=== PATIENT | female | born 1970 | race Caucasian/White ===

== ENCOUNTER 2019-07-10 16:06 | Inpatient (IN) | payer BC, MEDICARE ==
--- NOTE | 2019-07-10 17:43 | ED ---
Abdominal Pain HPI - General Source: patient Mode of arrival: ambulatory Limitations: no limitations <Sanna Herbert - Last Filed: 07/11/19 00:05> <Noris Lai - Last Filed: 07/17/19 14:32> - General Chief Complaint: Abdominal Pain Stated Complaint: lt sided flank pain Time Seen by Provider: 07/10/19 17:17 - History of Present Illness Initial Comments: 48-year-old female presenting today for chief complaint of left flank pain radiating towards left groin x 3 hours. Patient states that within the last 2 months she has been having urological workup for initially what was thought to be recurrent urinary tract infections. She states that it initally began with left flank pain that resolved but she had a CT performed 3 weeks after symptom resolution and not stone was found she states her urologist then recommended cystoscopy, which she had performed during procedure patient had an area of the bladder due to inflammation, and a biopsy--patient then discharged on antibiotics which she cannot recall the name of. Procedure was performed 5 days ago. Patient is in town for the holidays visiting family and developed left flank pain that radiates towards her groin she states it fluctuates in intensity at maximum 8 out of 10 and a baseline of 5 out of 10 she states when the pain is at its worse she said describes as a stabbing pain. Patient states she also feels nauseated and has had an episode of dry heaving. Patient denies diarrhea dysuria urgency frequency or visible hematuria. Patient denies fever or flulike symptoms. Patient denies having any significant symptoms status post cystoscopy she states her symptoms actually have felt as though they resolved and she only had 1 day of gross hematuria. Patient denies any other complaints. Patient denies any recent shortness of breath, chest pain, back pain, abdominal pain, numbness or tingling, constipation or diarrhea, headaches or visual changes, or any other complaints. (Sanna Herbert) - Related Data Home Medications Medication Instructions Recorded Confirmed Cetirizine HCl [Zyrtec] 10 mg PO DAILY PRN 02/05/14 07/10/19 Metoclopramide HCl [Reglan] 5 mg PO BID PRN 02/05/14 07/10/19 buPROPion HCL [Wellbutrin XL] 300 mg PO HS 02/05/14 07/10/19 Dulaglutide [Trulicity] 0.75 mg SQ FR 07/10/19 07/10/19 Fenofibrate [Lofibra] 160 mg PO DAILY 07/10/19 07/10/19 Gabapentin [Neurontin] 600 mg PO HS 07/10/19 07/10/19 Galcanezumab-Gnlm [Emgality] 120 mg SQ Q28D 07/10/19 07/10/19 INSULIN ASPART (NovoLOG) [NovoLOG 5 - 15 unit SQ AC-TID PRN 07/10/19 07/10/19 (formulary)] Insulin Degludec [Tresiba] 30 units SQ DAILY 07/10/19 07/10/19 Levofloxacin 250 mg PO HS 07/10/19 07/10/19 Levothyroxine Sodium [Synthroid] 100 mcg PO DAILY 07/10/19 07/10/19 Lisinopril [Prinivil] 10 mg PO BID 07/10/19 07/10/19 Naproxen 500 mg PO BID PRN 07/10/19 07/10/19 Ondansetron HCl [Zofran] 8 mg PO Q8H PRN 07/10/19 07/10/19 Pantoprazole Sodium 40 mg PO DAILY 07/10/19 07/10/19 Pioglitazone [Actos] 30 mg PO DAILY 07/10/19 07/10/19 Pregabalin [Lyrica] 200 mg PO BID 07/10/19 07/10/19 Propranolol HCl 60 mg PO BID 07/10/19 07/10/19 Zonisamide [Zonegran] 200 mg PO HS 07/10/19 07/10/19 diphenhydrAMINE HCL [Benadryl] 50 mg PO HS 07/10/19 07/10/19 Previous Rx's Medication Instructions Recorded Cephalexin [Keflex] 500 mg PO Q8HR #15 cap 07/11/19 Ibuprofen [Motrin] 600 mg PO Q8HR PRN #20 tab 07/11/19 Allergies Allergy/AdvReac Type Severity Reaction Status Date / Time meperidine HCl [From Demerol] Allergy Severe Vomiting Verified 07/10/19 20:04 acetaminophen Allergy Unknown Verified 07/10/19 20:04 [From Darvocet-N] amitriptyline [From Elavil] Allergy Unknown Verified 07/10/19 20:04 duloxetine [From Cymbalta] Allergy Unknown Verified 07/10/19 20:04 escitalopram [From Lexapro] Allergy Unknown Verified 07/10/19 20:04 metformin Allergy Vomiting Verified 07/10/19 20:04 propoxyphene Allergy Unknown Verified 07/10/19 20:04 [From Darvocet-N] topiramate [From Topamax] Allergy Unknown Verified 07/10/19 20:04 tramadol Allergy Unknown Verified 07/10/19 20:04 venlafaxine [From Effexor] Allergy Unknown Verified 07/10/19 20:04 escitalopram oxalate AdvReac Rash/Hives Verified 07/10/19 20:04 [From Lexapro] Review of Systems ROS Other: All systems not noted in ROS Statement are negative. <Sanna Herbert - Last Filed: 07/11/19 00:05> ROS Other: All systems not noted in ROS Statement are negative. <Noris Lai - Last Filed: 07/17/19 14:32> ROS Statement: Those systems with pertinent positive or pertinent negative responses have been documented in the HPI. Past Medical History Past Medical History: Diabetes Mellitus, GERD/Reflux, Sleep Apnea/CPAP/BIPAP, Thyroid Disorder Additional Past Medical History / Comment(s): migraines, diarrhea History of Any Multi-Drug Resistant Organisms: None Reported Past Surgical History: Cholecystectomy, Orthopedic Surgery Additional Past Surgical History / Comment(s): knee surgeries- left x 2, rt x 1, shoulder pain, bladder surgery Past Anesthesia/Blood Transfusion Reactions: Postoperative Nausea & Vomiting (PO NV) Past Psychological History: Anxiety Smoking Status: Never smoker Past Alcohol Use History: None Reported Past Drug Use History: None Reported - Past Family History Mother Family Medical History: Cancer <Sanna Herbert - Last Filed: 07/11/19 00:05> General Exam Limitations: no limitations <Sanna Herbert - Last Filed: 07/11/19 00:05> - General Exam Comments Initial Comments: General: The patient is awake and alert, in no distress Eye: +3 mm pupils are equal, round and reactive to light, extra-ocular movements are intact. No nystagmus. There is normal conjunctiva bilaterally. No signs of icterus. Ears, nose, mouth and throat: There are moist mucous membranes and no oral lesions. Neck: The neck is supple, there is no tenderness or JVD. Cardiovascular: There is a regular rate and rhythm. No murmur, rub or gallop is appreciated. Respiratory: Lungs are clear to auscultation, respirations are non-labored, breath sounds are equal. No wheezes, stridor, rales, or rhonchi. Gastrointestinal: Soft, non-distended, non-tender abdomen without masses or organomegaly noted. There is no rebound or guarding present. Musculoskeletal: Normal ROM, no tenderness. Strength 5/5. Sensation intact. Radial pulses equal bilaterally 2+. Neurological: A&O x 3. CN II-XII intact grossly, There are no obvious motor or sensory deficits. Coordination appears grossly intact. Speech is normal. Skin: Skin is warm and dry and no rashes or lesions are noted. Psychiatric: Cooperative, appropriate mood & affect, normal judgment. (Sanna Herbert) Course Vital Signs 07/10/19 07/10/19 16:35 18:38 Temperature 97.9 F Pulse Rate 81 90 Respiratory 18 16 Rate Blood Pressure 154/92 158/82 O2 Sat by Pulse 96 96 Oximetry Medical Decision Making - Lab Data Result diagrams: 07/10/19 17:34 07/10/19 17:34 <Sanna Herbert - Last Filed: 07/11/19 00:05> - Lab Data Result diagrams: 07/11/19 06:57 07/10/19 17:34 <Noris Lai - Last Filed: 07/17/19 14:32> - Medical Decision Making 48-year-old female presenting today for left flank pain concerning for septic stone given leukocytosis of 21. Otherwise year and has significant RBCs. The stone is obstructing small 3 mm in size. There is 4 mm stone in the left kidney as well. Patient afebrile, nontoxic at this time but concern given laboratory studies/symptoms for developing sepsis from infected urolithiasis. Patient was given ketorolac for pain management as well as antiemetics. We consulted urolog y speaking with Dr. Allison who recommends admission and is agreeable to Rocephin as antibiotic treatment of choice. Urine culture pending. Recommended NPO after midnight (Sanna Herbert) I was available for consultation in the emergency department. The history and physical exam was performed by the midlevel provider. I reviewed the case with the midlevel and based on their presentation of the patient, I agree with the diagnosis and treatment plan. (Noris Lai) - Lab Data Lab Results 07/10/19 07/10/19 07/10/19 Range/Units 17:34 17:34 17:34 WBC 21.0 H (3.8-10.6) k/uL RBC 4.52 (3.80-5.40) m/uL Hgb 13.3 (11.4-16.0) gm/dL Hct 41.2 (34.0-46.0) % MCV 91.2 (80.0-100.0) fL MCH 29.6 (25.0-35.0) pg MCHC 32.4 (31.0-37.0) g/dL RDW 12.7 (11.5-15.5) % Plt Count 379 (150-450) k/uL Neutrophils % 84 % Lymphocytes % 8 % Monocytes % 5 % Eosinophils % 1 % Basophils % 1 % Neutrophils # 17.6 H (1.3-7.7) k/uL Lymphocytes # 1.8 (1.0-4.8) k/uL Monocytes # 1.0 (0-1.0) k/uL Eosinophils # 0.2 (0-0.7) k/uL Basophils # 0.3 H (0-0.2) k/uL Sodium 136 L (137-145) mmol/L Potassium 4.3 (3.5-5.1) mmol/L Chloride 106 (98-107) mmol/L Carbon Dioxide 18 L (22-30) mmol/L Anion Gap 12 mmol/L BUN 18 H (7-17) mg/dL Creatinine 0.95 (0.52-1.04) mg/dL Est GFR (CKD-EPI)AfAm 82 (>60 ml/min/1.73 sqM) Est GFR (CKD-EPI)NonAf 72 (>60 ml/min/1.73 sqM) Glucose 188 H (74-99) mg/dL Plasma Lactic Acid [place] (0.7-2.0) mmol/L Calcium 9.6 (8.4-10.2) mg/dL Urine Color Yellow Urine Appearance Cloudy H (Clear) Urine pH 5.5 (5.0-8.0) Ur Specific [place] 1.019 (1.001-1.035) Urine Protein Trace H (Negative) Urine Glucose (UA) Negative (Negative) Urine Ketones Negative (Negative) Urine Blood Large H (Negative) Urine Nitrite Negative (Negative) Urine Bilirubin Negative (Negative) Urine Urobilinogen <2.0 (<2.0) mg/dL Ur Leukocyte Esterase Trace H (Negative) Urine RBC >182 H (0-5) /hpf Urine WBC 10 H (0-5) /hpf Ur Squamous Epith Cells 2 (0-4) /hpf Hyaline Casts 1 (0-2) /lpf Urine Mucus Rare H (None) /hpf Urine Yeast (Budding) Rare H (None) /hpf 07/10/19 Range/Units 19:34 WBC (3.8-10.6) k/uL RBC (3.80-5.40) m/uL Hgb (11.4-16.0) gm/dL Hct (34.0-46.0) % MCV (80.0-100.0) fL MCH (25.0-35.0) pg MCHC (31.0-37.0) g/dL RDW (11.5-15.5) % Plt Count (150-450) k/uL Neutrophils % % Lymphocytes % % Monocytes % % Eosinophils % % Basophils % % Neutrophils # (1.3-7.7) k/uL Lymphocytes # (1.0-4.8) k/uL Monocytes # (0-1.0) k/uL Eosinophils # (0-0.7) k/uL Basophils # (0-0.2) k/uL Sodium (137-145) mmol/L Potassium (3.5-5.1) mmol/L Chloride (98-107) mmol/L Carbon Dioxide (22-30) mmol/L Anion Gap mmol/L BUN (7-17) mg/dL Creatinine (0.52-1.04) mg/dL Est GFR (CKD-EPI)AfAm (>60 ml/min/1.73 sqM) Est GFR (CKD-EPI)NonAf (>60 ml/min/1.73 sqM) Glucose (74-99) mg/dL Plasma Lactic Acid [place] 1.8 (0.7-2.0) mmol/L Calcium (8.4-10.2) mg/dL Urine Color Urine Appearance (Clear) Urine pH (5.0-8.0) Ur Specific [place] (1.001-1.035) Urine Protein (Negative) Urine Glucose (UA) (Negative) Urine Ketones (Negative) Urine Blood (Negative) Urine Nitrite (Negative) Urine Bilirubin (Negative) Urine Urobilinogen (<2.0) mg/dL Ur Leukocyte Esterase (Negative) Urine RBC (0-5) /hpf Urine WBC (0-5) /hpf Ur Squamous Epith Cells (0-4) /hpf Hyaline Casts (0-2) /lpf Urine Mucus (None) /hpf Urine Yeast (Budding) (None) /hpf Disposition Is patient prescribed a controlled substance at d/c from ED?: No Time of Disposition: 19:46 Decision to Admit Reason: Admit from EC Decision Date: 07/10/19 Decision Time: 19:46 <Sanna Herbert - Last Filed: 07/11/19 00:05> <Noris Lai - Last Filed: 07/17/19 14:32> Clinical Impression: Urolithiasis, Leukocytosis Disposition: ADMITTED IP TO THIS [facility] Condition: Stable
[2019-07-10 18:08] LABS: Basophils # (A) 0.3 k/uL (0-0.2); Basophils % (A) 1 %; Eosinophils # (A) 0.2 k/uL (0-0.7); Eosinophils % (A) 1 %; HCT 41.2 % (34.0-46.0); HGB 13.3 gm/dL (11.4-16.0); Lymphocytes # (A) 1.8 k/uL (1.0-4.8); Lymphocytes % (A) 8 %; MCH 29.6 pg (25.0-35.0); MCHC 32.4 g/dL (31.0-37.0); MCV 91.2 fL (80.0-100.0); Mean Platelet Volume 8.8; Monocytes % (A) 5 %; Neutrophils # (A) 17.6 k/uL (1.3-7.7); Neutrophils % (A) 84 %; Platelet Count 379 k/uL (150-450); RBC 4.52 m/uL (3.80-5.40); RDW 12.7 % (11.5-15.5)
[2019-07-10 18:17] LABS: Appearance,Urine Cloudy (Clear); Bilirubin,Urine Negative (Negative); Blood,Urine Large (Negative); Budding Yeast,Urine Rare /hpf; Color,Urine Yellow; Glucose,Urine (UA) Negative (Negative); Hyaline Casts,Urine 1 /lpf (0-2); Ketones,Urine Negative (Negative); Leukocyte Esterase,Urine Trace (Negative); Mucus,Urine Rare /hpf; Nitrite,Urine Negative (Negative); PH, Urine 5.5 (5.0-8.0); Protein,Urine Trace (Negative); RBC,Urine >182 /hpf (0-5); Specific Gravity,Urine 1.019 (1.001-1.035); Squamous Epithelial Cell,Urine 2 /hpf (0-4); Urobilinogen,Urine <2.0 mg/dL (<2.0); WBC,Urine 10 /hpf (0-5)
[2019-07-10 18:18] LABS: Calcium 9.6 mg/dL (8.4-10.2); Potassium 4.3 mmol/L (3.5-5.1)
--- NOTE | 2019-07-10 18:47 | CT ---
EXAMINATION TYPE: CT abdomen pelvis wo con DATE OF EXAM: 07/10/2019 COMPARISON: HISTORY: left flank pain CT DLP: 1413.4 mGycm Automated exposure control for dose reduction was used. None multiple axial sections were obtained from the diaphragm to the floor the pelvis with no contras t. FINDINGS: There is small calcified granuloma lateral left lower lobe. There is no pleural effusion. Heart size is normal. There is no pericardial effusion. There is diffuse fatty infiltration of the liver. Spleen is intact. Stomach is intact. There is no ev idence of pancreatic mass. There are clips from cholecystectomy. There is no adrenal mass. Kidneys have normal size. There is fat stranding around the left kidney. Th ere is 4 mm calculus interpolar right kidney. There is mild left-sided hydronephrosis and hydroureter . There is 3 mm calculus in the distal left ureter. Bladder distends smoothly. Uterus is anteverted. There is no free fluid in the pelvis. There is no sign of pelvic mass. There is no inguinal hernia. There is no sign of a bowel obstruction. There is no mesenteric edema. There is no ascites or free ai r. Appendix is seen and is normal in size. Appendix is medial. Lumbar vertebra appear intact. Disc spaces are fairly normal. There is no compression fracture. Bony pelvis is intact. IMPRESSION: Obstructing small calculus distal left ureter. Mild left-sided hydronephrosis and hydroureter. Nonobstructing small right renal calculus. Normal appendix. Fatty infiltration of the liver.
[2019-07-10] MEDS ORDERED: cefTRIAXone IN SWFI 1,000 MG/10 ML SYRINGE IVP STA (19:07)
[2019-07-10] MEDS ORDERED: KETOROLAC 30 MG/ML 1 ML VIAL IVP STA (19:14)
[2019-07-10] MEDS ORDERED: ONDANSETRON 4 MG/2 ML VIAL IVP STA (19:14)
[2019-07-10] MEDS ORDERED: NALOXONE 0.4 MG/ML 1 ML VIAL IV PRN (19:42)
[2019-07-10] MEDS ORDERED: diphenhydrAMINE 25 MG CAP PO SCH (21:45)
[2019-07-10] MEDS ORDERED: ZONISAMIDE 100 MG CAP PO SCH (21:45)
[2019-07-10] MEDS ORDERED: buPROPion XL 300 MG TAB.ER.24H PO SCH (21:45)
[2019-07-10] MEDS ORDERED: GABAPENTIN 300 MG CAP PO SCH (21:45)
[2019-07-10 21:56] LABS: Glucose,Whole Blood 247 mg/dL (75-99)
[2019-07-10] MEDS: PREGABALIN 100 MG CAP PO SCH (22:30)
[2019-07-10] MEDS: INSULIN ASPART (NovoLOG) 100 UNIT/ML VIAL SQ SCH (22:31)
[2019-07-10] MEDS: SODIUM CHLORIDE 0.9% 1,000 ML IV SCH (22:32)
[2019-07-10] MEDS ORDERED: FAMOTIDINE 20 MG TAB PO SCH (23:00)
[2019-07-10] MEDS: PROPRANOLOL 20 MG TAB PO SCH (23:32)
[2019-07-10] MEDS: LISINOPRIL 10 MG TAB PO SCH (23:32)
[2019-07-11] MEDS: KETOROLAC 30 MG/ML 1 ML VIAL IVP PRN ×2 (05:22→13:36)
[2019-07-11] MEDS: SODIUM CHLORIDE 0.9% 1,000 ML IV SCH ×2 (05:26→11:51)
[2019-07-11] MEDS ORDERED: INSULIN ASPART (NovoLOG) 100 UNIT/ML VIAL SQ SCH (07:30)
[2019-07-11] MEDS: PREGABALIN 100 MG CAP PO SCH (07:35)
[2019-07-11 07:38] LABS: Glucose,Whole Blood 159 mg/dL (75-99)
[2019-07-11] MEDS: INSULIN ASPART (NovoLOG) 100 UNIT/ML VIAL SQ SCH ×3 (07:38→17:27)
[2019-07-11] MEDS: PROPRANOLOL 20 MG TAB PO SCH (07:43)
[2019-07-11] MEDS: LISINOPRIL 10 MG TAB PO SCH (07:43)
[2019-07-11 07:53] LABS: Basophils # (A) 0.1 k/uL (0-0.2); Basophils % (A) 1 %; Eosinophils # (A) 0.1 k/uL (0-0.7); Eosinophils % (A) 1 %; HCT 37.4 % (34.0-46.0); HGB 12.1 gm/dL (11.4-16.0); Lymphocytes # (A) 2.6 k/uL (1.0-4.8); Lymphocytes % (A) 28 %; MCH 30.1 pg (25.0-35.0); MCHC 32.4 g/dL (31.0-37.0); MCV 92.9 fL (80.0-100.0); Mean Platelet Volume 8.6; Monocytes # (A) 0.6 k/uL (0-1.0); Monocytes % (A) 6 %; Neutrophils % (A) 63 %; Platelet Count 327 k/uL (150-450); RBC 4.03 m/uL (3.80-5.40); RDW 12.8 % (11.5-15.5); WBC 9.4 k/uL (3.8-10.6)
--- NOTE | 2019-07-11 08:46 | P.GSHP ---
History of Present Illness H&P Date: 07/11/19 Chief Complaint: left flank pain Ms. Reddy is a 48-year-old female, admitted to the hospital with 3 mm left distal ureteral stone. She denies any nausea vomiting fevers or chills. She recently underwent a cystoscopy by an outside urologist for gross hematuria, was only significant for inflammation. On presentation in the ED she did have leukocytosis at 21,000. This morning she complains of mild flank pain, and indicated she has not passed the stone yet. Denies any urgency frequency or dysuria - Constitutional Constitutional: Denies chills, Denies fever - EENT Ears, nose, mouth and throat: Denies dysphagia, Denies headache - Cardiovascular Cardiovascular: Denies chest pain, Denies dyspnea on exertion - Respiratory Respiratory: Denies cough, Denies cough with sputum, Denies dyspnea - Gastrointestinal Gastrointestinal: Denies abdominal pain, Denies nausea, Denies vomiting - Genitourinary (Female) Genitourinary: Reports flank pain, Reports kidney stones, Denies dysuria, Denies urgency - Genitourinary (Male) Genitourinary: Reports hematuria - Neurological Neurological: Denies confusion, Denies double vision - Psychiatric Psychiatric: Denies anxiety, Denies depression Past Medical History Past Medical History: Diabetes Mellitus, GERD/Reflux, Sleep Apnea/CPAP/BIPAP, Thyroid Disorder Additional Past Medical History / Comment(s): migraines, diarrhea History of Any Multi-Drug Resistant Organisms: None Reported Past Surgical History: Cholecystectomy, Orthopedic Surgery Additional Past Surgical History / Comment(s): knee surgeries- left x 2, rt x 1, shoulder pain, bladder surgery Past Anesthesia/Blood Transfusion Reactions: Postoperative Nausea & Vomiting (PONV) Past Psychological History: Anxiety Smoking Status: Never smoker Past Alcohol Use History: None Reported Past Drug Use History: None Reported - Past Family History Mother Family Medical History: Cancer Medications and Allergies Home Medications Medication Instructions Recorded Confirmed Type Cetirizine HCl [Zyrtec] 10 mg PO DAILY PRN 02/05/14 07/10/19 History Metoclopramide HCl [Reglan] 5 mg PO BID PRN 02/05/14 07/10/19 History buPROPion HCL [Wellbutrin XL] 300 mg PO HS 02/05/14 07/10/19 History Dulaglutide [Trulicity] 0.75 mg SQ FR 07/10/19 07/10/19 History Fenofibrate [Lofibra] 160 mg PO DAILY 07/10/19 07/10/19 History Gabapentin [Neurontin] 600 mg PO HS 07/10/19 07/10/19 History Galcanezumab-Gnlm [Emgality] 120 mg SQ Q28D 07/10/19 07/10/19 History INSULIN ASPART (NovoLOG) [NovoLOG 5 - 15 unit SQ AC-TID PRN 07/10/19 07/10/19 History (formulary)] Insulin Degludec [Tresiba] 30 units SQ DAILY 07/10/19 07/10/19 History Levofloxacin 250 mg PO HS 07/10/19 07/10/19 History Levothyroxine Sodium [Synthroid] 100 mcg PO DAILY 07/10/19 07/10/19 History Lisinopril [Prinivil] 10 mg PO BID 07/10/19 07/10/19 History Naproxen 500 mg PO BID PRN 07/10/19 07/10/19 History Ondansetron HCl [Zofran] 8 mg PO Q8H PRN 07/10/19 07/10/19 History Pantoprazole Sodium 40 mg PO DAILY 07/10/19 07/10/19 History Pioglitazone [Actos] 30 mg PO DAILY 07/10/19 07/10/19 History Pregabalin [Lyrica] 200 mg PO BID 07/10/19 07/10/19 History Propranolol HCl 60 mg PO BID 07/10/19 07/10/19 History Zonisamide [Zonegran] 200 mg PO HS 07/10/19 07/10/19 History diphenhydrAMINE HCL [Benadryl] 50 mg PO HS 07/10/19 07/10/19 History Allergies Allergy/AdvReac Type Severity Reaction Status Date / Time meperidine HCl [From Demerol] Allergy Severe Vomiting Verified 07/10/19 20:04 acetaminophen Allergy Unknown Verified 07/10/19 20:04 [From Darvocet-N] amitriptyline [From Elavil] Allergy Unknown Verified 07/10/19 20:04 duloxetine [From Cymbalta] Allergy Unknown Verified 07/10/19 20:04 escitalopram [From Lexapro] Allergy Unknown Verified 07/10/19 20:04 metformin Allergy Vomiting Verified 07/10/19 20:04 propoxyphene Allergy Unknown Verified 07/10/19 20:04 [From Darvocet-N] topiramate [From Topamax] Allergy Unknown Verified 07/10/19 20:04 tramadol Allergy Unknown Verified 07/10/19 20:04 venlafaxine [From Effexor] Allergy Unknown Verified 07/10/19 20:04 escitalopram oxalate AdvReac Rash/Hives Verified 07/10/19 20:04 [From Lexapro] Surgical - Exam Vital Signs Temp Pulse Resp BP Pulse Ox 97.9 F 81 18 154/92 96 07/10/19 16:35 07/10/19 16:35 07/10/19 16:35 07/10/19 16:35 07/10/19 16:35 - General well developed, well nourished, no distress, no pain - Eyes normal ocular movement, no pale - ENT normal nares, normal mucosa - Respiratory normal expansion, normal respiratory effort - Abdomen Abdomen: soft, non tender - Neurologic no combative, no confused - Psychiatric oriented to time, oriented to person, oriented to place Results - Labs 07/11/19 06:57 07/10/19 17:34 Abnormal Lab Results - Last 24 Hours (Table) 07/10/19 07/10/19 07/10/19 Range/Units 17:34 17:34 17:34 WBC 21.0 H (3.8-10.6) k/uL Neutrophils # 17.6 H (1.3-7.7) k/uL Basophils # 0.3 H (0-0.2) k/uL Sodium 136 L (137-145) mmol/L Carbon Dioxide 18 L (22-30) mmol/L BUN 18 H (7-17) mg/dL Glucose 188 H (74-99) mg/dL POC Glucose (mg/dL) (75-99) mg/dL Urine Appearance Cloudy H (Clear) Urine Protein Trace H (Negative) Urine Blood Large H (Negative) Ur Leukocyte Esterase Trace H (Negative) Urine RBC >182 H (0-5) /hpf Urine WBC 10 H (0-5) /hpf Urine Mucus Rare H (None) /hpf Urine Yeast (Budding) Rare H (None) /hpf 07/10/19 07/11/19 Range/Units 21:54 07:37 WBC (3.8-10.6) k/uL Neutrophils # (1.3-7.7) k/uL Basophils # (0-0.2) k/uL Sodium (137-145) mmol/L Carbon Dioxide (22-30) mmol/L BUN (7-17) mg/dL Glucose (74-99) mg/dL POC Glucose (mg/dL) 247 H 159 H (75-99) mg/dL Urine Appearance (Clear) Urine Protein (Negative) Urine Blood (Negative) Ur Leukocyte Esterase (Negative) Urine RBC (0-5) /hpf Urine WBC (0-5) /hpf Urine Mucus (None) /hpf Urine Yeast (Budding) (None) /hpf Diabetes panel 07/10/19 Range/Units 17:34 Sodium 136 L (137-145) mmol/L Potassium 4.3 (3.5-5.1) mmol/L Chloride 106 (98-107) mmol/L Carbon Dioxide 18 L (22-30) mmol/L BUN 18 H (7-17) mg/dL Creatinine 0.95 (0.52-1.04) mg/dL Glucose 188 H (74-99) mg/dL Calcium 9.6 (8.4-10.2) mg/dL Calcium panel 07/10/19 Range/Units 17:34 Calcium 9.6 (8.4-10.2) mg/dL Pituitary panel 07/10/19 Range/Units 17:34 Sodium 136 L (137-145) mmol/L Potassium 4.3 (3.5-5.1) mmol/L Chloride 106 (98-107) mmol/L Carbon Dioxide 18 L (22-30) mmol/L BUN 18 H (7-17) mg/dL Creatinine 0.95 (0.52-1.04) mg/dL Glucose 188 H (74-99) mg/dL Calcium 9.6 (8.4-10.2) mg/dL Adrenal panel 07/10/19 Range/Units 17:34 Sodium 136 L (137-145) mmol/L Potassium 4.3 (3.5-5.1) mmol/L Chloride 106 (98-107) mmol/L Carbon Dioxide 18 L (22-30) mmol/L BUN 18 H (7-17) mg/dL Creatinine 0.95 (0.52-1.04) mg/dL Glucose 188 H (74-99) mg/dL Calcium 9.6 (8.4-10.2) mg/dL Assessment and Plan Assessment: 48-year-old female, 3 mm left distal ureteral stone. Patient had leukocytosis of 21,000 and presentation. Of note the patient is diabetic Plan: -I discussed with her given her leukocytosis and diabetes I recommend she undergo stent placement, I discussed with her if there is no purulent urine obtained I will attempt to basket the stone. But did discuss given her leukocytosis I don't recommend that she undergoes laser lithotripsy. -continue antibiotics -We'll plan on discharging patient home after the procedure
[2019-07-11] MEDS ORDERED: IV FLUID CONTINUATION 1,000 ML IV ONE (08:53)
[2019-07-11] MEDS ORDERED: DEXAMETHASONE SOD PHOSPHATE 4 MG/ML 1 ML VIAL IVP ONE (08:59)
[2019-07-11] MEDS: ONDANSETRON 4 MG/2 ML VIAL IVP PRN ×2 (08:59→13:37)
[2019-07-11] MEDS ORDERED: SCOPOLAMINE 1.5MG/72HR PATCH TRANSDERM ONE (08:59)
[2019-07-11] MEDS ORDERED: MIDAZOLAM 2 MG/2 ML VIAL ONE (11:45)
[2019-07-11] MEDS ORDERED: LIDOCAINE 1% INJ 10MG/ML (20 ML MDV) ONE (11:45)
[2019-07-11] MEDS ORDERED: PROPOFOL 10 MG/ML 20 ML VIAL IV ONE (11:45)
[2019-07-11] MEDS ORDERED: PHENYLEPHRINE-0.9% NACL SYG 1 MG/10 ML SYRINGE ONE (11:45)
[2019-07-11] MEDS ORDERED: fentaNYL (PF) 50 MCG/ML 2 ML AMP ONE (11:45)
[2019-07-11] MEDS ORDERED: SUCCINYLCHOLINE CHLORIDE 100 MG/5 ML SYR IV ONE (11:45)
[2019-07-11] MEDS ORDERED: GENTAMICIN 40 MG/ML 2 ML VIAL IVPB ONE (12:16)
[2019-07-11] MEDS ORDERED: IOPAMIDOL-370 50ML BTL MISCELLANE ONE (12:39)
[2019-07-11] MEDS ORDERED: LACTATED RINGERS 1,000 ML IV ONE (12:41)
--- NOTE | 2019-07-11 13:11 | FL ---
EXAMINATION TYPE: FL guidance operating room DATE OF EXAM: 07/11/2019 CLINICAL HISTORY: Left-sided Ureter stone. TECHNIQUE: Fluoroscopy. COMPARISON: CT abdomen and pelvis from yesterday. FINDINGS: Fluoroscopic guidance was provided during left ureter stent insertion procedure performed by Dr. Kenyon. A total of 6 seconds of fluoroscopic time was utilized during the procedure and singl e spot fluoroscopic intraoperative image is acquired. Single image acquired shows partial visualizati on of proximal portion left ureter stent. IMPRESSION: As Above.
--- NOTE | 2019-07-11 13:16 | P.OP ---
Date of Procedure: 07/11/19 Preoperative Diagnosis: left ureteral calculi Postoperative Diagnosis: same Procedure(s) Performed: cystoscopy, left ureteroscopy, stent placement Implants: 6-Swazi by 24 cm stent Anesthesia: ROBY Surgeon: Raza Allison Estimated Blood Loss (ml): 5 Pathology: none sent Condition: stable Disposition: PACU Indications for Procedure: Mrs. Reddy is a 48-year-old female that presents to the hospital with 3 mm left-sided ureteral stone. On presentation her white white count was elevated at 21,000. Repeat CBC this morning demonstrated that she had no evidence of leukocytosis her white count was 9,000. Additionally her urinalysis was negative. Given her flank pain and initial leukocytosis and history of diabetes I recommended her to undergo a ureteral stent placement with a possible ureteroscopy there is no evidence of infected urine. she agreed to proceed, I discussed with her the risk including but not limited to bleeding, infection, sepsis and ureteral perforation. Also discussed risk from anesthesia which include but not limited to heart attack, strokes, blood clots and loss of life. She understood all the risk and agreed to proceed Operative Findings: no stone was visualized along the course of the ureter, there was evidence of stone crystals within the bladder Description of Procedure: the patient was brought to the operating room, general anesthesia was induced. She was prepped and draped in sterile fashion was in dorsal lithotomy position. Cystoscope fitted with a 22 sheath was inserted per urethra cystoscopy was performed which showed no tumors within the bladder. Of note at the trigone there was evidence of biopsy and a recent fulguration. Attention was carried to the left ureteral orifice, 0.035 sensor wire was advanced through the cystoscope up to the renal pelvis once the wire was advanced it was noted that clear urine was draining from the left ureteral orifice. There is no evidence of cloudy or purulent urine from the left collecting system. Next the ureteral balloon dilator was advanced over the wire into the left UVJ which was dilated using the balloon dilator. Next a semirigid ureteroscope was inserted through the left ureteral orifice ureteroscopy was performed which showed no evidence of stones along the course of the ureter. Next an 11-13 sheath was advanced over the wire and into the renal pelvis. Flexibile ureteroscope was inserted and renoscopy was performed which showed no stone in the kidney. Pullback ureteroscopy confirmed no stones in the ureter or injury to the ureter. Next a 6-Swazi by 24 cm stent was passed over the wire and into the renal pelvis. The proximal curl was visualized Under fluoroscopy and the distal curl was visualized using the cystoscope. The bladder was emptied at the end of the case the patient was taken to PACU in stable condition
[2019-07-11 14:49] VITALS: RESP 12; TEMP 98.1
[2019-07-11 15:41] VITALS: PULSE 91
[2019-07-11 16:31] VITALS: BP 137/84
[2019-07-11 17:06] LABS: Glucose,Whole Blood 271 mg/dL (75-99)
== END 2019-07-11 19:05 | disposition home or self-care (01) | DRG 661 ==
LOC: EC 16:06 → 4SSUR 19:53
PROVIDERS: ADMIT Urology; ATTEND Urology
PROC: 0T778DZ Dilation of Left Ureter with Intraluminal Device, Via Natural or Artificial Opening Endoscopic (ICD-10-PCS; principal; 2019-07-11 07:36)
DX: N20.1 Calculus of ureter (principal); E11.9 Type 2 diabetes mellitus without complications; F41.9 Anxiety disorder, unspecified; K21.9 Gastro-esophageal reflux disease without esophagitis; G47.30 Sleep apnea, unspecified; E07.9 Disorder of thyroid, unspecified; G43.909 Migraine, unspecified, not intractable, without status migrainosus; Z79.890 Hormone replacement therapy; Z79.899 Other long term (current) drug therapy; Z88.8 Allergy status to other drugs, medicaments and biological substances; Z88.6 Allergy status to analgesic agent; Z79.1 Long term (current) use of non-steroidal anti-inflammatories (NSAID); Z79.4 Long term (current) use of insulin; Z79.2 Long term (current) use of antibiotics; Z90.49 Acquired absence of other specified parts of digestive tract; Z87.440 Personal history of urinary (tract) infections; Z98.890 Other specified postprocedural states; Z80.9 Family history of malignant neoplasm, unspecified
CPT/HCPCS: 36415; 74176; 80048; 81001; 81025; 83605; 85025; 87040; 87086; 96374; 96375; 99285

== ENCOUNTER 2021-12-03 22:00 | Emergency (ER) | payer MEDICARE ==
[2021-12-03 22:07] VITALS: PULSE 82
[2021-12-04] MEDS ORDERED: SODIUM CHLORIDE 0.9% 1,000 ML IV STA (00:22)
[2021-12-04] MEDS ORDERED: MORPHINE SULFATE 4 MG/ML SYRINGE IV STA (00:22)
[2021-12-04] MEDS ORDERED: ONDANSETRON 4 MG/2 ML VIAL IVP STA (00:22)
--- NOTE | 2021-12-04 00:22 | ED ---
Abdominal Pain HPI - General Chief Complaint: Abdominal Pain Stated Complaint: Kidney Pain COVID+ Source: patient, RN notes reviewed, old records reviewed Mode of arrival: ambulatory Limitations: no limitations - History of Present Illness Initial Comments: This is a 51-year-old female to the ER for evaluation. Patient comes in for right flank pain nausea no acute active vomiting. No current nausea and vomiting. Patient states on arrival pain was improved.patient states she does not do well with pain control medications. She has had 2 kidney stones before both requiring surgery.no Dysuria no fevers no other abdominal pain known MD Complaint: abdominal pain, flank pain (right) -: hour(s) Location: RLQ, suprapubic, R flank Radiation: suprapubic, R flank Migration to: suprapubic Severity: moderate Severity scale (1-10): 7 Quality: sharp Consistency: constant Improves With: nothing Worsens With: nothing Associated Symptoms: nausea Treatments Prior to Arrival: other (none) - Related Data Home Medications Medication Instructions Recorded Confirmed Cetirizine HCl [Zyrtec] 10 mg PO DAILY PRN 02/05/14 07/10/19 Metoclopramide HCl [Reglan] 5 mg PO BID PRN 02/05/14 07/10/19 buPROPion HCL [Wellbutrin XL] 300 mg PO HS 02/05/14 07/10/19 Dulaglutide [Trulicity] 0.75 mg SQ FR 07/10/19 07/10/19 Fenofibrate [Lofibra] 160 mg PO DAILY 07/10/19 07/10/19 Gabapentin [Neurontin] 600 mg PO HS 07/10/19 07/10/19 Galcanezumab-Gnlm [Emgality] 120 mg SQ Q28D 07/10/19 07/10/19 INSULIN ASPART (NovoLOG) [NovoLOG 5 - 15 unit SQ AC-TID PRN 07/10/19 07/10/19 (formulary)] Insulin Degludec [Tresiba] 30 units SQ DAILY 07/10/19 07/10/19 Levothyroxine Sodium [Synthroid] 100 mcg PO DAILY 07/10/19 07/10/19 Lisinopril [Prinivil] 10 mg PO BID 07/10/19 07/10/19 Naproxen 500 mg PO BID PRN 07/10/19 07/10/19 Pantoprazole Sodium 40 mg PO DAILY 07/10/19 07/10/19 Pioglitazone [Actos] 30 mg PO DAILY 07/10/19 07/10/19 Pregabalin [Lyrica] 200 mg PO BID 07/10/19 07/10/19 Propranolol HCl 60 mg PO BID 07/10/19 07/10/19 Zonisamide [Zonegran] 200 mg PO HS 07/10/19 07/10/19 diphenhydrAMINE HCL [Benadryl] 50 mg PO HS 07/10/19 07/10/19 levoFLOXacin 250 mg PO HS 07/10/19 07/10/19 ondansetron HCL [Zofran] 8 mg PO Q8H PRN 07/10/19 07/10/19 Previous Rx's Medication Instructions Recorded Cephalexin [Keflex] 500 mg PO Q8HR #15 cap 07/11/19 Ibuprofen [Motrin] 600 mg PO Q8HR PRN #20 tab 07/11/19 Allergies Allergy/AdvReac Type Severity Reaction Status Date / Time meperidine HCl [From Demerol] Allergy Severe Vomiting Verified 12/03/21 22:07 amitriptyline [From Elavil] Allergy Unknown Verified 12/03/21 22:07 duloxetine [From Cymbalta] Allergy Unknown Verified 12/03/21 22:07 escitalopram [From Lexapro] Allergy Unknown Verified 12/03/21 22:07 metformin Allergy Vomiting Verified 12/03/21 22:07 propoxyphene Allergy Unknown Verified 12/03/21 22:07 [From Darvocet-N] topiramate [From Topamax] Allergy Unknown Verified 12/03/21 22:07 tramadol Allergy Unknown Verified 12/03/21 22:07 venlafaxine [From Effexor] Allergy Unknown Verified 12/03/21 22:07 escitalopram oxalate AdvReac Rash/Hives Verified 12/03/21 22:07 [From Lexapro] Review of Systems ROS Statement: Those systems with pertinent positive or pertinent negative responses have been documented in the HPI. ROS Other: All systems not noted in ROS Statement are negative. Past Medical History Past Medical History: Diabetes Mellitus, GERD/Reflux, Sleep Apnea/CPAP/BIPAP, Thyroid Disorder Additional Past Medical History / Comment(s): migraines, diarrhea History of Any Multi-Drug Resistant Organisms: None Reported Past Surgical History: Cholecystectomy, Orthopedic Surgery Additional Past Surgical History / Comment(s): knee surgeries- left x 2, rt x 1, shoulder pain, bladder surgery Past Anesthesia/Blood Transfusion Reactions: Postoperative Nausea & Vomiting (PONV) Past Psychological History: Anxiety Smoking Status: Former smoker Past Alcohol Use History: None Reported Past Drug Use History: None Reported - Past Family History Mother Family Medical History: Cancer General Exam Limitations: no limitations General appearance: alert, in no apparent distress, anxious Head exam: Present: atraumatic, normocephalic, normal inspection Eye exam: Present: normal appearance, PERRL, EOMI. Absent: scleral icterus, conjunctival injection, periorbital swelling ENT exam: Present: normal exam, mucous membranes moist Neck exam: Present: normal inspection. Absent: tenderness, meningismus, lymphadenopathy Respiratory exam: Present: normal lung sounds bilaterally. Absent: respiratory distress, wheezes, rales, rhonchi, stridor Cardiovascular Exam: Present: regular rate, normal rhythm, normal heart sounds. Absent: systolic murmur, diastolic murmur, rubs, gallop, clicks GI/Abdominal exam: Present: soft, normal bowel sounds. Absent: distended, tenderness, guarding, rebound, rigid Extremities exam: Present: normal inspection, full ROM, normal capillary refill. Absent: tenderness, pedal edema, joint swelling, calf tenderness Back exam: Present: normal inspection Neurological exam: Present: alert, oriented X3, CN II-XII intact Psychiatric exam: Present: normal affect, normal mood Skin exam: Present: warm, dry, intact, normal color. Absent: rash Course Vital Signs 12/03/21 22:04 Temperature 98.4 F Pulse Rate 82 Respiratory 16 Rate Blood Pressure 161/102 O2 Sat by Pulse 96 Oximetry - Reevaluation(s) Reevaluation #1: 12/04/21 03:13 medical record is reviewed Reevaluation #2: 12/04/21 03:13 patient is informed of results and questions answered Reevaluation #3: 12/04/21 03:13 patient has current adequate pain control Medical Decision Making - Medical Decision Making 51 female to the emergency department for evaluation of right-sided flank pain with right-sided kidney stone. At this time patient has pain control can be discharged home - Lab Data Result diagrams: 12/04/21 01:41 12/04/21 01:41 Lab Results 12/04/21 12/04/21 12/04/21 Range/Units 01:41 01:41 01:41 WBC 9.8 (3.8-10.6) k/uL RBC 4.88 (3.80-5.40) m/uL Hgb 14.6 (11.4-16.0) gm/dL Hct 44.9 (34.0-46.0) % MCV 92.0 (80.0-100.0) fL MCH 29.9 (25.0-35.0) pg MCHC 32.5 (31.0-37.0) g/dL RDW 13.9 (11.5-15.5) % Plt Count 317 (150-450) k/uL MPV 8.9 Neutrophils % 73 % Lymphocytes % 18 % Monocytes % 6 % Eosinophils % 1 % Basophils % 1 % Neutrophils # 7.2 (1.3-7.7) k/uL Lymphocytes # 1.8 (1.0-4.8) k/uL Monocytes # 0.6 (0-1.0) k/uL Eosinophils # 0.1 (0-0.7) k/uL Basophils # 0.1 (0-0.2) k/uL Sodium 137 (137-145) mmol/L Potassium 3.9 (3.5-5.1) mmol/L Chloride 109 H (98-107) mmol/L Carbon Dioxide 19 L (22-30) mmol/L Anion Gap 9 mmol/L BUN 14 (7-17) mg/dL Creatinine 1.15 H (0.52-1.04) mg/dL Est GFR (CKD-EPI)AfAm 64 (>60 ml/min/1.73 sqM) Est GFR (CKD-EPI)NonAf 55 (>60 ml/min/1.73 sqM) Glucose 127 H (74-99) mg/dL Calcium 9.5 (8.4-10.2) mg/dL Total Bilirubin 0.4 (0.2-1.3) mg/dL AST 24 (14-36) U/L ALT 18 (4-34) U/L Alkaline Phosphatase 53 (38-126) U/L Total Protein 7.1 (6.3-8.2) g/dL Albumin 4.2 (3.5-5.0) g/dL Amylase 35 (30-110) U/L Lipase 99 (23-300) U/L Urine Color Yellow Urine Appearance Cloudy H (Clear) Urine pH 5.5 (5.0-8.0) Ur Specific [place] 1.029 (1.001-1.035) Urine Protein Trace H (Negative) Urine Glucose (UA) Negative (Negative) Urine Ketones Negative (Negative) Urine Blood Moderate H (Negative) Urine Nitrite Negative (Negative) Urine Bilirubin Negative (Negative) Urine Urobilinogen <2.0 (<2.0) mg/dL Ur Leukocyte Esterase Large H (Negative) Urine RBC 17 H (0-5) /hpf Urine WBC 23 H (0-5) /hpf Ur Squamous Epith Cells 8 H (0-4) /hpf Calcium Oxalate Crystal Moderate H (None) /hpf Hyaline Casts 5 H (0-2) /lpf Urine Mucus Occasional H (None) /hpf - Radiology Data Radiology results: report reviewed (CT abdomen and pelvis does show right-sided kidney stone), image reviewed Disposition Clinical Impression: Abdominal pain, Right ureteral calculus Disposition: HOME SELF-CARE Condition: Good Instructions (If sedation given, give patient instructions): Abdominal Pain (ED), Kidney Stones (ED) Is patient prescribed a controlled substance at d/c from ED?: No Referrals: Yifan Shay MD [STAFF PHYSICIAN] - 1-2 days
--- NOTE | 2021-12-04 01:25 | CT ---
EXAMINATION TYPE: CT abdomen pelvis wo con DATE OF EXAM: 12/04/2021 COMPARISON: 07/10/2019 HISTORY: Abd. pain CT DLP: 1346.2 mGycm Automated exposure control for dose reduction was used. Images obtained from the diaphragm to the floor of the pelvis without contrast. The lung bases are clear. No pleural effusion. Heart size is normal. No pericardial effusion. There is diffuse fatty infiltration of the liver. There are clips from cholecystectomy. Spleen is int act. There is no pancreatic mass. Stomach is intact. There is no adrenal mass. Right kidney is enlarged with hydronephrosis. There is perinephric edema. T here is obstructing 1 cm calculus in the proximal right ureter. There is no retroperitoneal adenopath y. Bladder is almost empty. Uterus is anteverted. No pelvic mass. No free fluid in the pelvis. No shanta dence of inguinal hernia. The lumbar spine is intact. No compression fracture. Bony pelvis is intact. There is no mesenteric edema. No ascites or free air. No bowel obstruction. IMPRESSION: Obstructing calculus in the proximal right ureter with moderate right-sided hydronephrosis. Obstructi on appears new compared to the old exam. There is clearing of the left-sided renal obstruction compar ed to old exam. There is 1 mm calculus lower pole left kidney. Fatty infiltration of the liver.
[2021-12-04] MEDS ORDERED: TAMSULOSIN 0.4 MG CAP.ER.24H PO STA (02:07)
[2021-12-04 02:08] LABS: Appearance,Urine Cloudy (Clear); Bilirubin,Urine Negative (Negative); Blood,Urine Moderate (Negative); Calcium Oxalate Crystals,Urine Moderate /hpf; Color,Urine Yellow; Glucose,Urine (UA) Negative (Negative); Hyaline Casts,Urine 5 /lpf (0-2); Ketones,Urine Negative (Negative); Leukocyte Esterase,Urine Large (Negative); Mucus,Urine Occasional /hpf; Nitrite,Urine Negative (Negative); PH, Urine 5.5 (5.0-8.0); Protein,Urine Trace (Negative); RBC,Urine 17 /hpf (0-5); Specific Gravity,Urine 1.029 (1.001-1.035); Squamous Epithelial Cell,Urine 8 /hpf (0-4); Urobilinogen,Urine <2.0 mg/dL (<2.0); WBC,Urine 23 /hpf (0-5)
[2021-12-04 02:10] LABS: Albumin 4.2 g/dL (3.5-5.0); Calcium 9.5 mg/dL (8.4-10.2); Potassium 3.9 mmol/L (3.5-5.1); Total Bilirubin 0.4 mg/dL (0.2-1.3); Total Protein 7.1 g/dL (6.3-8.2)
[2021-12-04 02:12] LABS: Basophils # (A) 0.1 k/uL (0-0.2); Basophils % (A) 1 %; Eosinophils # (A) 0.1 k/uL (0-0.7); Eosinophils % (A) 1 %; HCT 44.9 % (34.0-46.0); HGB 14.6 gm/dL (11.4-16.0); Lymphocytes # (A) 1.8 k/uL (1.0-4.8); Lymphocytes % (A) 18 %; MCH 29.9 pg (25.0-35.0); MCHC 32.5 g/dL (31.0-37.0); Mean Platelet Volume 8.9; Monocytes # (A) 0.6 k/uL (0-1.0); Monocytes % (A) 6 %; Neutrophils # (A) 7.2 k/uL (1.3-7.7); Neutrophils % (A) 73 %; Platelet Count 317 k/uL (150-450); RBC 4.88 m/uL (3.80-5.40); RDW 13.9 % (11.5-15.5); WBC 9.8 k/uL (3.8-10.6)
[2021-12-04] MEDS ORDERED: HYDROcodone/APAP 5-325MG 1 EACH TAB PO STA (03:10)
[2021-12-04] MEDS ORDERED: cefTRIAXone IN SWFI 1,000 MG/10 ML SYRINGE IVP STA (03:10)
[2021-12-04] MEDS ORDERED: ONDANSETRON 4 MG ODT STARTER PACK 2 TAB BTL PO STA (03:11)
[2021-12-04] MEDS ORDERED: ACET/COD 300 MG/30 MG STARTER PACK 6 TAB BTL PO STA (03:11)
[2021-12-04] MEDS ORDERED: IBUPROFEN 600 MG STARTER PACK 4 TAB BTL PO STA (03:11)
[2021-12-04 03:43] VITALS: BP 171/80; RESP 20; TEMP 98.3
== END 2021-12-04 03:46 | disposition home or self-care (01) ==
LOC: EC 22:00
DX: N13.2 Hydronephrosis with renal and ureteral calculous obstruction (principal); E11.9 Type 2 diabetes mellitus without complications; K21.9 Gastro-esophageal reflux disease without esophagitis; F41.9 Anxiety disorder, unspecified; Z79.4 Long term (current) use of insulin; E07.9 Disorder of thyroid, unspecified; Z87.891 Personal history of nicotine dependence; Z79.84 Long term (current) use of oral hypoglycemic drugs; Z79.890 Hormone replacement therapy; Z79.899 Other long term (current) drug therapy
CPT/HCPCS: 36415; 74176; 80053; 81001; 82150; 83690; 85025; 87086; 96374; 96375; 99284

== ENCOUNTER 2022-01-07 07:37 | Day surgery (SDC) | payer MEDICARE ==
[2022-01-05 15:28] VITALS: BMI 36.8
--- NOTE | 2022-01-06 11:13 | P.GSHP ---
History of Present Illness H&P Date: 01/06/22 51 yo femae with a right 12mm upj stone with pain and obsruction who comes for a right ureteroscopy and laser lithotripsy. She was previously in [facility] where as tent was placed for obstruction and pain. She now comes for stone removal - Constitutional Constitutional: Denies chills, Denies fever - EENT Eyes: denies blurred vision, denies pain Ears, nose, mouth and throat: Denies headache, Denies sore throat - Cardiovascular Cardiovascular: Denies chest pain, Denies shortness of breath - Respiratory Respiratory: Denies cough, Denies 7 - Gastrointestinal Gastrointestinal: Denies abdominal pain, Denies diarrhea, Denies nausea, Denies vomiting - Genitourinary (Female) Genitourinary: Denies dysuria, Denies hematuria - Genitourinary (Male) Genitourinary: Denies dysuria, Denies hematuria - Musculoskeletal Musculoskeletal: Denies myalgias - Integumentary Integumentary: Denies pruritus, Denies rash - Neurological Neurological: Denies numbness, Denies weakness - Psychiatric Psychiatric: Denies anxiety, Denies depression - Endocrine Endocrine: Denies fatigue, Denies weight change Past Medical History Past Medical History: Diabetes Mellitus, GERD/Reflux, Hyperlipidemia, Sleep Apnea/CPAP/BIPAP, Thyroid Disorder Additional Past Medical History / Comment(s): migraines,. KIDNEY STONES, UTI History of Any Multi-Drug Resistant Organisms: None Reported Past Surgical History: Cholecystectomy, Orthopedic Surgery Additional Past Surgical History / Comment(s): knee surgeries- left x 2, rt x 1, shoulder SX, bladder surgery, KIDNEY STONE SX WITH STENT PLACEMENT, COLONOSCOPY, EGD Past Anesthesia/Blood Transfusion Reactions: Postoperative Nausea & Vomiting (PONV) Smoking Status: Never smoker - Past Family History Mother Family Medical History: Cancer Medications and Allergies Home Medications Medication Instructions Recorded Confirmed Type Cetirizine HCl [Zyrtec] 10 mg PO DAILY PRN 02/05/14 01/05/22 History Metoclopramide HCl [Reglan] 5 mg PO BID PRN 02/05/14 01/05/22 History buPROPion HCL [Wellbutrin XL] 300 mg PO HS 02/05/14 01/05/22 History Fenofibrate [Lofibra] 160 mg PO DAILY 07/10/19 01/05/22 History Levothyroxine Sodium [Synthroid] 100 mcg PO DAILY 07/10/19 01/05/22 History Pantoprazole Sodium 40 mg PO DAILY 07/10/19 01/05/22 History Propranolol HCl [Inderal] 60 mg PO BID 07/10/19 01/05/22 History Zonisamide [Zonegran] 200 mg PO HS 07/10/19 01/05/22 History diphenhydrAMINE HCL [Benadryl] 50 mg PO HS 07/10/19 01/05/22 History ondansetron HCL [Zofran] 8 mg PO Q8H PRN 07/10/19 01/05/22 History Ibuprofen [Motrin] 600 mg PO Q8HR PRN #20 tab 07/11/19 01/05/22 Rx Famotidine 40 mg PO HS 01/05/22 01/05/22 History Oxybutynin Chloride [Oxybutynin 10 mg PO HS 01/05/22 01/05/22 History Chloride ER] QUEtiapine XR [SEROquel XR] 50 mg PO DAILY 01/05/22 01/05/22 History QUEtiapine [SEROquel] 100 mg PO HS 01/05/22 01/05/22 History Semaglutide [Ozempic] 1 dose SQ MARCUS 01/05/22 01/05/22 History Tamsulosin [Flomax] 0.4 mg PO DAILY 01/05/22 01/05/22 History Allergies Allergy/AdvReac Type Severity Reaction Status Date / Time meperidine HCl [From Demerol] Allergy Severe Vomiting Verified 01/05/22 15:01 amitriptyline [From Elavil] Allergy Unknown Verified 01/05/22 15:01 duloxetine [From Cymbalta] Allergy Unknown Verified 01/05/22 15:01 escitalopram [From Lexapro] Allergy Unknown Verified 01/05/22 15:01 metformin Allergy Vomiting Verified 01/05/22 15:01 propoxyphene Allergy Unknown Verified 01/05/22 15:01 [From Darvocet-N] topiramate [From Topamax] Allergy Unknown Verified 01/05/22 15:01 tramadol Allergy Unknown Verified 01/05/22 15:01 venlafaxine [From Effexor] Allergy Unknown Verified 01/05/22 15:01 escitalopram oxalate AdvReac Rash/Hives Verified 01/05/22 15:01 [From Lexapro] Surgical - Exam - General well developed, well nourished, no distress - Eyes normal ocular movement, no icteric - ENT no hearing loss, no congestion - Neck no masses, trachea midline - Respiratory normal respiratory effort, clear to auscultation - Abdomen Abdomen: soft, non tender, no guarding, no rigid, no rebound - Integumentary no rash, no abnormal pigmentation - Neurologic no disoriented, no combative - Psychiatric oriented to time, oriented to person, oriented to place, speech is normal, memory intact Results - Imaging CT scan - abdomen: report reviewed, image reviewed CT scan - pelvis: report reviewed, image reviewed Assessment and Plan Assessment: Impression: right ureteral stone with stent. Plan: right ureteroscopy with laser lithotripsy.
[~2022-01-07 07:37] MED LIST: DEXAMETHASONE SOD PHOSPHATE 4 MG/ML 1 ML VIAL IV ONE; LACTATED RINGERS 1,000 ML IV SCH; LIDOCAINE 1% (10MG/ML) FOR IV START INTRADERMA PRN; ONDANSETRON 4 MG/2 ML VIAL IVP ONE; SCOPOLAMINE 1 MG/72 HR PATCH TRANSDERM ONE; fentaNYL (PF) 50 MCG/ML 2 ML AMP IV PRN
--- NOTE | 2022-01-07 08:08 | XR ---
EXAMINATION TYPE: XR KUB DATE OF EXAM: 01/07/2022 HISTORY: Pain Comparison: None. Single KUB is submitted for interpretation. Findings: Right renal calculi: None Visualized. Right ureteral calculi: Double-pigtail right ureteral stent is in place. Calcifications are noted myron ng the stent with 9.1 mm calculus at the right L4 level. Left renal calculi: None Visualized. Left ureteral calculi: None Visualized. Pelvic calcifications: None Visualized. Bowel gas pattern is unremarkable. No free air. No mass effects. IMPRESSION: 1. Double-pigtail right ureteral stent is in place. Calcifications are noted along the stent with 9.1 mm calculus at the right L4 level.
[2022-01-07 08:47] LABS: Glucose,Whole Blood 143 mg/dL (70-110)
[2022-01-07] MEDS ORDERED: MIDAZOLAM 2 MG/2 ML VIAL ONE (09:28)
[2022-01-07] MEDS ORDERED: SUCCINYLCHOLINE CHLORIDE 100 MG/5 ML SYR IV ONE (09:28)
[2022-01-07] MEDS ORDERED: LIDOCAINE 2% INJ 20 MG/ML (2 ML VIAL) ONE (09:28)
[2022-01-07] MEDS ORDERED: fentaNYL (PF) 50 MCG/ML 2 ML AMP ONE (09:28)
[2022-01-07] MEDS ORDERED: PROPOFOL 10 MG/ML 20 ML VIAL IV ONE (09:28)
--- NOTE | 2022-01-07 10:36 | FL ---
Fluoroscopy History: RT URETERAL STONE Rt ureteral stone. Dr Gupta. 9 seconds of FL.
[2022-01-07 10:39] VITALS: TEMP 96.8
--- NOTE | 2022-01-07 10:48 | P.OP ---
Date of Procedure: 01/07/22 Preoperative Diagnosis: right ureteral stone with obstruction, large Postoperative Diagnosis: same Procedure(s) Performed: cystoscopy, removal double-J catheter right, right ureteroscopy with laser lithotripsy and stone basketing, replacement of double-J catheter right Anesthesia: ROBY Surgeon: Brett Gupta Estimated Blood Loss (ml): 50 Pathology: other (stone) Condition: stable Disposition: PACU Indications for Procedure: the patient is 51, she had a 9 mm obstructing right ureteral stone requiring a stent to relieve the obstruction, pain and urosepsis. She now comes for stent and stone removal Description of Procedure: patient is brought to the operating suite. She's given general anesthesia. Fluoroscopy identifies a stone in the proximal ureter with a stent placed. Cystoscopy Foroblique lens and 21-Sami sheath identifies noninflamed bladder from the stent. I remove the stent which is quite encrusted and passed an 035 wire up into the kidney. Alongside the wires passed a 7-Sami mini ureteroscope up to the stone. The stone is extremely hard. With the 375 laser probe it is broken into tiny pieces and flushed out of the ureter. The largest fragment is basketed and removed from the ureter. Ureter is extremely inflamed and hemorrhagic. A stent will be replaced. Through the ureteroscope I replaced the 035 wire up into the kidney. I removed the scope and over the wires passed a 6 x 24 double-J catheter that coils in the renal pelvis and the bladder bladder strain the patient's awake and returned recovery room good condition. She'll be discharged home upon recovery and found the office in one week for stent removal
[2022-01-07 11:16] LABS: Glucose,Whole Blood 211 mg/dL (70-110)
[2022-01-07 11:51] LABS: Glucose,Whole Blood 237 mg/dL (70-110)
[2022-01-07] MEDS ORDERED: ONDANSETRON 4 MG/2 ML VIAL ONE (11:53)
[2022-01-07] MEDS ORDERED: ONDANSETRON 4 MG/2 ML VIAL IVP ONE (11:54)
[2022-01-07 12:07] VITALS: BP 145/85; PULSE 74; RESP 15
== END 2022-01-07 12:30 | disposition home or self-care (01) ==
LOC: OR 07:37
PROVIDERS: ATTEND Urology
DX: N20.1 Calculus of ureter (principal); Z96.0 Presence of urogenital implants; E11.69 Type 2 diabetes mellitus with other specified complication; E78.5 Hyperlipidemia, unspecified; K21.9 Gastro-esophageal reflux disease without esophagitis; G47.30 Sleep apnea, unspecified; E07.9 Disorder of thyroid, unspecified; G43.909 Migraine, unspecified, not intractable, without status migrainosus; Z87.442 Personal history of urinary calculi; Z87.440 Personal history of urinary (tract) infections; Z90.49 Acquired absence of other specified parts of digestive tract; Z80.9 Family history of malignant neoplasm, unspecified; Z79.899 Other long term (current) drug therapy; Z79.890 Hormone replacement therapy; Z88.8 Allergy status to other drugs, medicaments and biological substances; Z88.6 Allergy status to analgesic agent
CPT/HCPCS: 81025; 82365; 74018; 52356; C2625; C1769; J2250; J1100; J0690; J2405; J3010; J0330; J2704; J2001

== ENCOUNTER 2022-02-10 17:47 | Observation (INO) | payer MEDICARE ==
[2022-02-10 18:53] LABS: Appearance,Urine Cloudy (Clear); Bacteria,Urine Rare /hpf; Bilirubin,Urine Negative (Negative); Blood,Urine Moderate (Negative); Color,Urine Yellow; Glucose,Urine (UA) Negative (Negative); Hyaline Casts,Urine 1 /lpf (0-2); Ketones,Urine Trace (Negative); Leukocyte Esterase,Urine Large (Negative); Mucus,Urine Few /hpf; Nitrite,Urine Negative (Negative); Protein,Urine 3+ (Negative); RBC,Urine 6 /hpf (0-5); Specific Gravity,Urine 1.024 (1.001-1.035); Squamous Epithelial Cell,Urine 17 /hpf (0-4); WBC,Urine 164 /hpf (0-5)
[2022-02-10] MEDS ORDERED: ONDANSETRON 4 MG/2 ML VIAL IVP STA (20:49)
--- NOTE | 2022-02-10 21:04 | ED ---
General Adult HPI - General Chief complaint: Urogenital Stated complaint: possible kidney stones or UTI Time Seen by Provider: 02/10/22 19:06 Source: patient Mode of arrival: ambulatory Limitations: no limitations - History of Present Illness Initial comments: Patient is a 51-year-old female presents the emergency room with complaints of urinary tract infection which is being treated outpatient by urology after lithotripsy earlier this summer. She reports that she was prescribed Bactrim along with Zofran for her nausea; she reports despite the nausea she has been vomiting and been unability to keep her medications down. She denies any fevers but does complain of chills. She denies any diarrhea, chest pain, shortness of breath or lethargy. She reports that her pain in her right flank region has been ongoing for a while she is unsure of when symptoms exactly started; she was evaluated for urinary tract infection on February 02 by her primary care provider which was negative from a urinary culture standpoint. She reports earlier in the week she was evaluated at the [facility] and was started on treatment for positive urinalysis showing a UTI. She states that she also had developed kidney stones in November in which she underwent lithotripsy for the end of December and developed urinary frequency, dysuria along with consistent flank pain. In addition to her known nephrolithiasis she has a past medical history significant for diabetes, migraines, GERD, sleep apnea and hypothyroidism. She reports that she typically takes Ozempic for her diabetes but usually when she is in the hospital she is on insulin. She denies any other complaints or concerns at this time. - Related Data Home Medications Medication Instructions Recorded Confirmed Cetirizine HCl [Zyrtec] 10 mg PO DAILY PRN 02/05/14 01/07/22 Metoclopramide HCl [Reglan] 5 mg PO BID PRN 02/05/14 01/07/22 buPROPion HCL [Wellbutrin XL] 300 mg PO HS 02/05/14 01/07/22 Fenofibrate [Lofibra] 160 mg PO DAILY 07/10/19 01/07/22 Levothyroxine Sodium [Synthroid] 100 mcg PO DAILY 07/10/19 01/07/22 Pantoprazole Sodium 40 mg PO DAILY 07/10/19 01/07/22 Propranolol HCl [Inderal] 60 mg PO BID 07/10/19 01/07/22 Zonisamide [Zonegran] 200 mg PO HS 07/10/19 01/07/22 diphenhydrAMINE HCL [Benadryl] 50 mg PO HS 07/10/19 01/07/22 ondansetron HCL [Zofran] 8 mg PO Q8H PRN 07/10/19 01/07/22 Famotidine 40 mg PO HS 01/05/22 01/07/22 Oxybutynin Chloride [Oxybutynin 10 mg PO HS 01/05/22 01/07/22 Chloride ER] QUEtiapine XR [SEROquel XR] 50 mg PO DAILY 01/05/22 01/07/22 QUEtiapine [SEROquel] 100 mg PO HS 01/05/22 01/07/22 Semaglutide [Ozempic] 1 dose SQ MARCUS 01/05/22 01/07/22 Tamsulosin [Flomax] 0.4 mg PO DAILY 01/05/22 01/07/22 Previous Rx's Medication Instructions Recorded Ibuprofen [Motrin] 600 mg PO Q8HR PRN #20 tab 07/11/19 Allergies Allergy/AdvReac Type Severity Reaction Status Date / Time meperidine HCl [From Demerol] Allergy Severe Vomiting Verified 02/10/22 18:28 amitriptyline [From Elavil] Allergy Unknown Verified 02/10/22 18:28 duloxetine [From Cymbalta] Allergy Unknown Verified 02/10/22 18:28 escitalopram [From Lexapro] Allergy Unknown Verified 02/10/22 18:28 metformin Allergy Vomiting Verified 02/10/22 18:28 propoxyphene Allergy Unknown Verified 02/10/22 18:28 [From Darvocet-N] topiramate [From Topamax] Allergy Unknown Verified 02/10/22 18:28 tramadol Allergy Unknown Verified 02/10/22 18:28 venlafaxine [From Effexor] Allergy Unknown Verified 02/10/22 18:28 escitalopram oxalate AdvReac Rash/Hives Verified 02/10/22 18:28 [From Lexapro] Review of Systems ROS Statement: Those systems with pertinent positive or pertinent negative responses have been documented in the HPI. ROS Other: All systems not noted in ROS Statement are negative. Past Medical History Past Medical History: Diabetes Mellitus, GERD/Reflux, Sleep Apnea/CPAP/BIPAP, Thyroid Disorder Additional Past Medical History / Comment(s): migraines, diarrhea History of Any Multi-Drug Resistant Organisms: None Reported Past Surgical History: Cholecystectomy, Orthopedic Surgery Additional Past Surgical History / Comment(s): knee surgeries- left x 2, rt x 1, shoulder pain, bladder surgery Past Anesthesia/Blood Transfusion Reactions: Postoperative Nausea & Vomiting (PONV) Past Psychological History: Anxiety Smoking Status: Former smoker Past Alcohol Use History: None Reported Past Drug Use History: None Reported - Past Family History Mother Family Medical History: Cancer General Exam Limitations: no limitations General appearance: alert, in no apparent distress Head exam: Present: atraumatic, normocephalic, normal inspection Eye exam: Present: normal appearance, PERRL, EOMI. Absent: scleral icterus, conjunctival injection, periorbital swelling ENT exam: Present: normal exam, mucous membranes moist Neck exam: Present: normal inspection. Absent: tenderness, meningismus, lymphadenopathy Respiratory exam: Present: normal lung sounds bilaterally. Absent: respiratory distress, wheezes, rales, rhonchi, stridor Cardiovascular Exam: Present: regular rate, normal rhythm, normal heart sounds. Absent: systolic murmur, diastolic murmur, rubs, gallop, clicks GI/Abdominal exam: Present: soft, tenderness (Mild right), normal bowel sounds. Absent: distended, guarding, rebound, rigid Extremities exam: Present: normal inspection, full ROM, normal capillary refill. Absent: tenderness, pedal edema, joint swelling, calf tenderness Back exam: Present: CVA tenderness (R). Absent: CVA tenderness (L) Neurological exam: Present: alert, oriented X3, CN II-XII intact Psychiatric exam: Present: normal affect, normal mood Skin exam: Present: warm, dry, intact, normal color. Absent: rash Course Vital Signs 02/10/22 18:25 Temperature 99 F Pulse Rate 106 H Respiratory 18 Rate Blood Pressure 126/78 O2 Sat by Pulse 98 Oximetry Medical Decision Making - Medical Decision Making Due to severe flank pain along with hematuria on urinalysis will check CT of abdomen and pelvis without contrast to rule out additional kidney stones and possible obstruction. Will evaluate CBC, blood cultures, lactic acid 2 establish baseline for infectious process. Will also check renal function, electrolytes, amylase and lipase in the setting of severe nausea and vomiting. Will give Zofran for nausea along with Toradol for pain. Awaiting computed tomography scan of abdomen and pelvis however given failed outpatient treatment for UTI will need admission. Dr. Malin covering for Dr. Myers notified of need for admission. Will also consult Dr. Gupta. Computed tomography scan of abdomen and pelvis revealed an obstructing right sided stone with mild right sided hydronephrosis. Will continue with IV hydration and Toradol for pain management as needed. Findings of laboratory studies discussed with patient. Case discussed with Dr. Mcnally. - Lab Data Result diagrams: 02/10/22 21:16 02/10/22 21:16 Lab Results 02/10/22 02/10/22 02/10/22 Range/Units 18:29 21:16 21:16 WBC 15.1 H (3.8-10.6) k/uL RBC 4.25 (3.80-5.40) m/uL Hgb 12.5 (11.4-16.0) gm/dL Hct 39.4 (34.0-46.0) % MCV 92.7 (80.0-100.0) fL MCH 29.5 (25.0-35.0) pg MCHC 31.8 (31.0-37.0) g/dL RDW 13.7 (11.5-15.5) % Plt Count 206 (150-450) k/uL MPV 9.9 Neutrophils % 86 % Lymphocytes % 7 % Monocytes % 5 % Eosinophils % 0 % Basophils % 0 % Neutrophils # 12.9 H (1.3-7.7) k/uL Lymphocytes # 1.1 (1.0-4.8) k/uL Monocytes # 0.8 (0-1.0) k/uL Eosinophils # 0.0 (0-0.7) k/uL Basophils # 0.1 (0-0.2) k/uL Sodium 135 L (137-145) mmol/L Potassium 3.4 L (3.5-5.1) mmol/L Chloride 101 (98-107) mmol/L Carbon Dioxide 19 L (22-30) mmol/L Anion Gap 15 mmol/L BUN 24 H (7-17) mg/dL Creatinine 1.25 H (0.52-1.04) mg/dL Est GFR (CKD-EPI)AfAm 58 (>60 ml/min/1.73 sqM) Est GFR (CKD-EPI)NonAf 50 (>60 ml/min/1.73 sqM) Glucose 228 H (74-99) mg/dL Plasma Lactic Acid [place] (0.7-2.0) mmol/L Calcium 9.1 (8.4-10.2) mg/dL Total Bilirubin 1.0 (0.2-1.3) mg/dL AST 33 (14-36) U/L ALT 30 (4-34) U/L Alkaline Phosphatase 59 (38-126) U/L Total Protein 6.9 (6.3-8.2) g/dL Albumin 4.0 (3.5-5.0) g/dL Urine Color Yellow Urine Appearance Cloudy H (Clear) Urine pH 6.0 (5.0-8.0) Ur Specific [place] 1.024 (1.001-1.035) Urine Protein 3+ H (Negative) Urine Glucose (UA) Negative (Negative) Urine Ketones Trace H (Negative) Urine Blood Moderate H (Negative) Urine Nitrite Negative (Negative) Urine Bilirubin Negative (Negative) Urine Urobilinogen 4.0 (<2.0) mg/dL Ur Leukocyte Esterase Large H (Negative) Urine RBC 6 H (0-5) /hpf Urine WBC 164 H (0-5) /hpf Ur Squamous Epith Cells 17 H (0-4) /hpf Urine Bacteria Rare H (None) /hpf Hyaline Casts 1 (0-2) /lpf Urine Mucus Few H (None) /hpf 02/10/22 Range/Units 21:16 WBC (3.8-10.6) k/uL RBC (3.80-5.40) m/uL Hgb (11.4-16.0) gm/dL Hct (34.0-46.0) % MCV (80.0-100.0) fL MCH (25.0-35.0) pg MCHC (31.0-37.0) g/dL RDW (11.5-15.5) % Plt Count (150-450) k/uL MPV Neutrophils % % Lymphocytes % % Monocytes % % Eosinophils % % Basophils % % Neutrophils # (1.3-7.7) k/uL Lymphocytes # (1.0-4.8) k/uL Monocytes # (0-1.0) k/uL Eosinophils # (0-0.7) k/uL Basophils # (0-0.2) k/uL Sodium (137-145) mmol/L Potassium (3.5-5.1) mmol/L Chloride (98-107) mmol/L Carbon Dioxide (22-30) mmol/L Anion Gap mmol/L BUN (7-17) mg/dL Creatinine (0.52-1.04) mg/dL Est GFR (CKD-EPI)AfAm (>60 ml/min/1.73 sqM) Est GFR (CKD-EPI)NonAf (>60 ml/min/1.73 sqM) Glucose (74-99) mg/dL Plasma Lactic Acid [place] 2.0 (0.7-2.0) mmol/L Calcium (8.4-10.2) mg/dL Total Bilirubin (0.2-1.3) mg/dL AST (14-36) U/L ALT (4-34) U/L Alkaline Phosphatase (38-126) U/L Total Protein (6.3-8.2) g/dL Albumin (3.5-5.0) g/dL Urine Color Urine Appearance (Clear) Urine pH (5.0-8.0) Ur Specific [place] (1.001-1.035) Urine Protein (Negative) Urine Glucose (UA) (Negative) Urine Ketones (Negative) Urine Blood (Negative) Urine Nitrite (Negative) Urine Bilirubin (Negative) Urine Urobilinogen (<2.0) mg/dL Ur Leukocyte Esterase (Negative) Urine RBC (0-5) /hpf Urine WBC (0-5) /hpf Ur Squamous Epith Cells (0-4) /hpf Urine Bacteria (None) /hpf Hyaline Casts (0-2) /lpf Urine Mucus (None) /hpf Disposition Clinical Impression: Urinary tract infection, Nephrolithiasis, Hydronephrosis concurrent with and due to calculi of kidney and ureter Disposition: ADMITTED IP TO THIS HOSP Condition: Fair Is patient prescribed a controlled substance at d/c from ED?: No Time of Disposition: 23:30
[2022-02-10 21:27] LABS: Basophils # (A) 0.1 k/uL (0-0.2); Basophils % (A) 0 %; Eosinophils % (A) 0 %; HCT 39.4 % (34.0-46.0); HGB 12.5 gm/dL (11.4-16.0); Lymphocytes # (A) 1.1 k/uL (1.0-4.8); Lymphocytes % (A) 7 %; MCH 29.5 pg (25.0-35.0); MCHC 31.8 g/dL (31.0-37.0); MCV 92.7 fL (80.0-100.0); Mean Platelet Volume 9.9; Monocytes # (A) 0.8 k/uL (0-1.0); Monocytes % (A) 5 %; Neutrophils # (A) 12.9 k/uL (1.3-7.7); Neutrophils % (A) 86 %; Platelet Count 206 k/uL (150-450); RBC 4.25 m/uL (3.80-5.40); RDW 13.7 % (11.5-15.5); WBC 15.1 k/uL (3.8-10.6)
[2022-02-10 21:52] LABS: Calcium 9.1 mg/dL (8.4-10.2); Potassium 3.4 mmol/L (3.5-5.1); Total Protein 6.9 g/dL (6.3-8.2)
[2022-02-10] MEDS ORDERED: KETOROLAC 15 MG/ML 1 ML VIAL IVP PRN (23:27)
[2022-02-10] MEDS ORDERED: ONDANSETRON 4 MG/2 ML VIAL IVP PRN (23:27)
[2022-02-10] MEDS ORDERED: MORPHINE SULFATE 4 MG/ML SYRINGE IV PRN (23:27)
[2022-02-10] MEDS ORDERED: NALOXONE 0.4 MG/ML 1 ML VIAL IV PRN (23:27)
[2022-02-10] MEDS ORDERED: DEXTROSE 50% SYRINGE 50 ML IVP PRN ×2 (23:29)
--- NOTE | 2022-02-10 23:52 | CT ---
EXAMINATION TYPE: CT abdomen pelvis wo con DATE OF EXAM: 02/10/2022 COMPARISON: 12/04/2021 HISTORY: rt flank pain CT DLP: 1131 mGycm Automated exposure control for dose reduction was used. Lung bases are clear of consolidation. There is a small calcified granuloma left lower lobe. Heart si ze is normal. No pericardial effusion. There is fatty infiltration of the liver. Spleen is intact. Li job is enlarged and measures 24 cm. There is no pancreatic mass. Stomach is intact. There are clips f rom cholecystectomy. The bile ducts are not dilated. There is no adrenal mass. Right kidney is enlarged with mild hydronephrosis. There is 5 mm calculus i n the proximal right ureter. There is right-sided perinephric edema. Left kidney shows 3 mm calculus lower pole. No hydronephrosis on the left side. No retroperitoneal adenopathy. Some mild fat strandin g in the right posterior pararenal space. The bladder distends smoothly. Uterus is anteverted. No pel geovany mass. No inguinal hernia. No free fluid in the pelvis. There is no mesenteric edema. No ascites or free air. No sign of a bowel obstruction. Small bowel pat tern is normal. Appendix is posterior and appears normal. The lumbar vertebra appear intact. No compr ession fracture. IMPRESSION: There is obstructing calculus proximal right ureter with right-sided hydronephrosis. There is clearin g of the large calculus in the proximal right ureter compared to old exam. Fatty infiltration of the liver. Normal appendix.
[2022-02-11] MEDS: SODIUM CHLORIDE 0.9% 1,000 ML IV SCH ×2 (00:50→13:04)
[2022-02-11 06:54] LABS: Glucose,Whole Blood 142 mg/dL (70-110)
[2022-02-11] MEDS: INSULIN ASPART (NovoLOG) 100 UNIT/ML VIAL SQ SCH ×4 (07:15→20:38)
[2022-02-11] MEDS: METOCLOPRAMIDE 5 MG/ML 2 ML VIAL IVP PRN ×2 (09:02→17:55)
[2022-02-11] MEDS ORDERED: DIVALPROEX 500 MG TABLET.DR PO PRN (09:42)
[2022-02-11] MEDS ORDERED: MELATONIN 5 MG TABLET PO PRN (09:42)
[2022-02-11] MEDS ORDERED: CLOTRIMAZOLE 1% CREAM 30 GM TUBE TOPICAL PRN (09:42)
[2022-02-11] MEDS ORDERED: DOCUSATE 100 MG CAP PO PRN (09:42)
[2022-02-11] MEDS ORDERED: polyethylene glycoL 3350 17 GM POWD.PACK PO PRN (09:42)
[2022-02-11] MEDS ORDERED: [UNRECOGNIZED DRUG - OTHER] PO PRN (09:42)
[2022-02-11] MEDS ORDERED: PROMETHAZINE 25 MG TAB PO PRN (09:42)
[2022-02-11] MEDS ORDERED: LORATADINE 10 MG TAB PO PRN (09:42)
--- NOTE | 2022-02-11 10:22 | P.GSCN ---
History of Present Illness Consult date: 02/11/22 Reason for Consult: UTI, hydronephrosis Requesting physician: Sulma Malin History of present illness: The patient is a 51-year-old white female with a history of recurrent urolithiasis. She presented early this summer with an 11 mm right UPJ calculus. She underwent right ureteral stent insertion. On 01/07/2022 she underwent right ureteroscopy with laser lithotripsy and stone basketing. A ureteral stent was left in place and was subsequently removed in the office. She now presents with nausea, vomiting, chills, and right flank pain. A urine culture obtained on February 02 was negative, but she was on antibiotics at that time. Review of Systems - Constitutional Reports chills, Denies fever - Gastrointestinal Reports nausea, Reports vomiting - Genitourinary Genitourinary: Reports flank pain, Reports kidney stones Past Medical History Past Medical History: Diabetes Mellitus, GERD/Reflux, Sleep Apnea/CPAP/BIPAP, Thyroid Disorder Additional Past Medical History / Comment(s): migraines, diarrhea History of Any Multi-Drug Resistant Organisms: None Reported Past Surgical History: Cholecystectomy, Orthopedic Surgery Additional Past Surgical History / Comment(s): knee surgeries- left x 2, rt x 1, shoulder pain, bladder surgery Past Anesthesia/Blood Transfusion Reactions: Postoperative Nausea & Vomiting (PONV) Past Psychological History: Anxiety Smoking Status: Former smoker Past Alcohol Use History: None Reported Past Drug Use History: None Reported - Past Family History Mother Family Medical History: Cancer Medications and Allergies Home Medications Medication Instructions Recorded Confirmed Type Cetirizine HCl [Zyrtec] 10 mg PO DAILY PRN 02/05/14 02/11/22 History buPROPion HCL [Wellbutrin XL] 300 mg PO HS 02/05/14 02/11/22 History Fenofibrate [Lofibra] 160 mg PO DAILY 07/10/19 02/11/22 History Levothyroxine Sodium [Synthroid] 100 mcg PO DAILY 07/10/19 02/11/22 History Pantoprazole Sodium 40 mg PO DAILY 07/10/19 02/11/22 History Propranolol HCl [Inderal] 60 mg PO BID 07/10/19 02/11/22 History Zonisamide [Zonegran] 200 mg PO HS 07/10/19 02/11/22 History Famotidine 40 mg PO HS 01/05/22 02/11/22 History Oxybutynin Chloride [Oxybutynin 10 mg PO HS 01/05/22 02/11/22 History Chloride ER] QUEtiapine XR [SEROquel XR] 50 mg PO DAILY 01/05/22 02/11/22 History QUEtiapine [SEROquel] 100 mg PO HS 01/05/22 02/11/22 History Semaglutide [Ozempic] 1 mg SQ MARCUS 01/05/22 02/11/22 History Botox 1 dose IM Q90D 02/11/22 02/11/22 History Ciprofloxacin HCl [Cipro] 500 mg PO BID 02/11/22 02/11/22 History Divalproex [Depakote] 500 mg PO DIRECTED PRN 02/11/22 02/11/22 History Docusate [Colace] 100 mg PO DAILY PRN 02/11/22 02/11/22 History Ketoconazole [Ketoconazole 2%] 1 applic TOPICAL DAILY PRN 02/11/22 02/11/22 History Magnesium(Unknown Dose) 1 tab PO DAILY 02/11/22 02/11/22 History Melatonin 5 - 10 mg PO HS PRN 02/11/22 02/11/22 History Metoclopramide [Reglan] 10 mg PO BID 02/11/22 02/11/22 History Ondansetron Odt [Zofran Odt] 8 mg PO Q8H PRN 02/11/22 02/11/22 History Promethazine [Phenergan] 25 mg PO Q8H PRN 02/11/22 02/11/22 History Riboflavin (Vitamin B2) [Vitamin 50 mg PO DAILY 02/11/22 02/11/22 History B-2] Ubrogepant [Ubrelvy] 100 mg PO DAILY PRN 02/11/22 02/11/22 History Vitamin D(Unknown Dose) 1 tab PO DAILY 02/11/22 02/11/22 History Vyepti 1 dose IVPB Q90D 02/11/22 02/11/22 History metroNIDAZOLE 0.75% CREAM 1 applic TOPICAL DAILY PRN 02/11/22 02/11/22 History [Metrocream 0.75%] polyethylene glycoL 3350 [Miralax] 17 gm PO DAILY PRN 02/11/22 02/11/22 History Allergies Allergy/AdvReac Type Severity Reaction Status Date / Time meperidine HCl [From Demerol] Allergy Severe Vomiting Verified 02/10/22 18:28 amitriptyline [From Elavil] Allergy Unknown Verified 02/10/22 18:28 duloxetine [From Cymbalta] Allergy Unknown Verified 02/10/22 18:28 escitalopram [From Lexapro] Allergy Unknown Verified 02/10/22 18:28 metformin Allergy Vomiting Verified 02/10/22 18:28 propoxyphene Allergy Unknown Verified 02/10/22 18:28 [From Darvocet-N] topiramate [From Topamax] Allergy Unknown Verified 02/10/22 18:28 tramadol Allergy Unknown Verified 02/10/22 18:28 venlafaxine [From Effexor] Allergy Unknown Verified 02/10/22 18:28 escitalopram oxalate AdvReac Rash/Hives Verified 02/10/22 18:28 [From Lexapro] Surgical - Exam Vital Signs Temp Pulse Resp BP Pulse Ox 99 F 106 H 18 126/78 98 02/10/22 18:25 02/10/22 18:25 02/10/22 18:25 02/10/22 18:25 02/10/22 18:25 - General well developed, well nourished, no distress - Neck no masses, trachea midline - Respiratory normal respiratory effort - Abdomen Abdomen: soft, tender (Right-sided tenderness), no masses, no guarding, no rig id, no rebound - Psychiatric oriented to time, oriented to person, oriented to place, speech is normal, memory intact Results - Labs 02/10/22 21:16 02/10/22 21:16 Abnormal Lab Results - Last 24 Hours (Table) 02/10/22 02/10/22 02/10/22 Range/Units 18:29 21:16 21:16 WBC 15.1 H (3.8-10.6) k/uL Neutrophils # 12.9 H (1.3-7.7) k/uL Sodium 135 L (137-145) mmol/L Potassium 3.4 L (3.5-5.1) mmol/L Carbon Dioxide 19 L (22-30) mmol/L BUN 24 H (7-17) mg/dL Creatinine 1.25 H (0.52-1.04) mg/dL Glucose 228 H (74-99) mg/dL POC Glucose (mg/dL) (70-110) mg/dL Urine Appearance Cloudy H (Clear) Urine Protein 3+ H (Negative) Urine Ketones Trace H (Negative) Urine Blood Moderate H (Negative) Ur Leukocyte Esterase Large H (Negative) Urine RBC 6 H (0-5) /hpf Urine WBC 164 H (0-5) /hpf Ur Squamous Epith Cells 17 H (0-4) /hpf Urine Bacteria Rare H (None) /hpf Urine Mucus Few H (None) /hpf 02/11/22 Range/Units 06:52 WBC (3.8-10.6) k/uL Neutrophils # (1.3-7.7) k/uL Sodium (137-145) mmol/L Potassium (3.5-5.1) mmol/L Carbon Dioxide (22-30) mmol/L BUN (7-17) mg/dL Creatinine (0.52-1.04) mg/dL Glucose (74-99) mg/dL POC Glucose (mg/dL) 142 H (70-110) mg/dL Urine Appearance (Clear) Urine Protein (Negative) Urine Ketones (Negative) Urine Blood (Negative) Ur Leukocyte Esterase (Negative) Urine RBC (0-5) /hpf Urine WBC (0-5) /hpf Ur Squamous Epith Cells (0-4) /hpf Urine Bacteria (None) /hpf Urine Mucus (None) /hpf Microbiology - Last 24 Hours (Table) 02/10/22 18:29 Urine Culture - Preliminary Urine,Clean Catch Diabetes panel 02/10/22 Range/Units 21:16 Sodium 135 L (137-145) mmol/L Potassium 3.4 L (3.5-5.1) mmol/L Chloride 101 (98-107) mmol/L Carbon Dioxide 19 L (22-30) mmol/L BUN 24 H (7-17) mg/dL Creatinine 1.25 H (0.52-1.04) mg/dL Glucose 228 H (74-99) mg/dL Calcium 9.1 (8.4-10.2) mg/dL AST 33 (14-36) U/L ALT 30 (4-34) U/L Alkaline Phosphatase 59 (38-126) U/L Total Protein 6.9 (6.3-8.2) g/dL Albumin 4.0 (3.5-5.0) g/dL Calcium panel 02/10/22 Range/Units 21:16 Calcium 9.1 (8.4-10.2) mg/dL Albumin 4.0 (3.5-5.0) g/dL Pituitary panel 02/10/22 Range/Units 21:16 Sodium 135 L (137-145) mmol/L Potassium 3.4 L (3.5-5.1) mmol/L Chloride 101 (98-107) mmol/L Carbon Dioxide 19 L (22-30) mmol/L BUN 24 H (7-17) mg/dL Creatinine 1.25 H (0.52-1.04) mg/dL Glucose 228 H (74-99) mg/dL Calcium 9.1 (8.4-10.2) mg/dL Adrenal panel 02/10/22 Range/Units 21:16 Sodium 135 L (137-145) mmol/L Potassium 3.4 L (3.5-5.1) mmol/L Chloride 101 (98-107) mmol/L Carbon Dioxide 19 L (22-30) mmol/L BUN 24 H (7-17) mg/dL Creatinine 1.25 H (0.52-1.04) mg/dL Glucose 228 H (74-99) mg/dL Calcium 9.1 (8.4-10.2) mg/dL Total Bilirubin 1.0 (0.2-1.3) mg/dL AST 33 (14-36) U/L ALT 30 (4-34) U/L Alkaline Phosphatase 59 (38-126) U/L Total Protein 6.9 (6.3-8.2) g/dL Albumin 4.0 (3.5-5.0) g/dL - Imaging CT scan - abdomen: report reviewed, image reviewed Assessment and Plan (1) Hydronephrosis concurrent with and due to calculi of kidney and ureter Current Visit: Yes Status: Acute Code(s): N13.2 - HYDRONEPHROSIS WITH RENAL AND URETERAL CALCULOUS OBSTRUCTION SNOMED Code(s): 824134966 (2) Urinary tract infection Current Visit: Yes Status: Acute Code(s): N39.0 - URINARY TRACT INFECTION, SITE NOT SPECIFIED SNOMED Code(s): 31251793 Plan: I reviewed Mrs. Reddy' CT scan, which reveals mild right hydronephrosis. I do not believe she has a UPJ calculus, but rather some residual debris following ureteroscopy with laser lithotripsy 1 month ago. She has intractable nausea and vomiting and has been unable to tolerate oral antibiotics and antibiotics. She is currently receiving IV antibiotics, pending urine culture results. I have suggested she undergo cystoscopy with right ureteral stent insertion to relieve any obstruction, and this will be performed later today by Dr. Gupta. Time with Patient: Greater than 30
[2022-02-11] MEDS ORDERED: ROCURONIUM 10 MG/ML (5 ML VIAL) IV ONE (10:44)
[2022-02-11] MEDS ORDERED: SUCCINYLCHOLINE CHLORIDE 200 MG/10 ML VIAL IV ONE (10:44)
[2022-02-11] MEDS ORDERED: fentaNYL (PF) 50 MCG/ML 2 ML AMP ONE (10:44)
[2022-02-11] MEDS ORDERED: PROPOFOL 10 MG/ML 20 ML VIAL IV ONE (10:44)
[2022-02-11] MEDS ORDERED: LIDOCAINE 2% INJ 20 MG/ML (2 ML VIAL) ONE (10:44)
[2022-02-11] MEDS ORDERED: MIDAZOLAM 2 MG/2 ML VIAL ONE (10:44)
[2022-02-11] MEDS ORDERED: ONDANSETRON 4 MG/2 ML VIAL ONE (10:44)
[2022-02-11] MEDS ORDERED: LACTATED RINGERS 1,000 ML IV ONE (10:46)
--- NOTE | 2022-02-11 11:17 | P.OP ---
Date of Procedure: 02/11/22 Preoperative Diagnosis: Status post right ureteroscopy, laser lithotripsy, urinary tract infection with hydronephrosis right Postoperative Diagnosis: Same Procedure(s) Performed: Cystoscopy, right double-J catheter, 6 x 24 Anesthesia: ROBY Surgeon: Brett Gupta Pathology: none sent Condition: stable Disposition: PACU Indications for Procedure: The patient is 51. She is in the hospital with right ureteral obstruction nausea and vomiting. She she also has a urine infection probably. A right ureteroscopy and laser lithotripsy recent past. The stent was removed but then she developed pain nausea and vomiting. She is in the hospital for a week with IV antibiotics a. Her symptoms relapse. She was seen in the office with nausea and vomiting. An ultrasound showed mild [place] on the right. We attempted to control this with oral antibiotics and oral antibiotics but failed. She came in the hospital last night. A computed tomography scan showed right hydroureteronephrosis to the proximal ureter. There is either sand or a fragment lodged in the ureter. Because of the elevated white count and infection I'll place a stent. At a later date we'll remove the stent and inspect the ureters see if there is any remaining stone. Description of Procedure: Patient brought to the operating suite. Given general anesthesia. Placed lithotomy position. Prepped and draped. Cystoscopy Foroblique lens and 22- Danish sheath identifies a normal urethra, normal bladder mucosa, normal ureteral orifices. A 035 straight wire is passed up the ureter into the renal pelvis. No obvious calcification is seen. Over the wires passed a 6 x 24 double-J catheter that coils in the renal pelvis and the bladder the bladder strain the patient is awakened and returned recovery room in good condition. She'll be observed in the hospital in the immediate postoperative period
[2022-02-11 13:02] LABS: Glucose,Whole Blood 218 mg/dL (70-110)
--- NOTE | 2022-02-11 15:59 | FL ---
Fluoroscopy INDICATION: Pain FINDINGS: Fluoroscopy time: 6 seconds. Images obtained: 5. IMPRESSIONS: 1. Documentation of fluoroscopy.
[2022-02-11 16:59] LABS: Glucose,Whole Blood 214 mg/dL (70-110)
--- NOTE | 2022-02-11 17:44 | P.HPIM ---
History of Present Illness H&P Date: 02/11/22 Kelley Reddy, he is a 51-year-old female who presented to [facility] emergency room with a chief complaint of worsening nausea and vomiting with inability to keep medications down, patient has a known history of kidney stone and urinary tract infection, she had history of lithotripsy few weeks ago, she was also maintained on oral Bactrim and Zofran for nausea, however patient was having worsening nausea and vomiting and she decided to come to emergency room. She was evaluated in emergency room vital examination on presentation revealed a temperature of 99 pulse 106 respiration 18 blood pressure 126/78 pulse ox 98% on room air Laboratory data revealed a white blood count of 15.1 hemoglobin 12.5 platelet count 206 sodium 135 potassium 3.4 chloride 101 CO2 19 BUN 24 creatinine 1.25 glucose on presentation was 228 Testing in the emergency room revealed computed tomography scan of the abdomen and pelvis was done in the emergency room and revealed evidence of obstructing calculus in the proximal right ureter with right sided hydronephrosis Patient was admitted to medical floor she was started on IV fluids and IV antibiotics and urology consultation was requested Past Medical History Past Medical History: Diabetes Mellitus, GERD/Reflux, Sleep Apnea/CPAP/BIPAP, Thyroid Disorder Additional Past Medical History / Comment(s): migraines, diarrhea History of Any Multi-Drug Resistant Organisms: None Reported Past Surgical History: Cholecystectomy, Orthopedic Surgery Additional Past Surgical History / Comment(s): knee surgeries- left x 2, rt x 1, shoulder pain, bladder surgery Past Anesthesia/Blood Transfusion Reactions: Postoperative Nausea & Vomiting (PONV) Past Psychological History: Anxiety Smoking Status: Former smoker Past Alcohol Use History: None Reported Past Drug Use History: None Reported - Past Family History Mother Family Medical History: Cancer Medications and Allergies Home Medications Medication Instructions Recorded Confirmed Type Cetirizine HCl [Zyrtec] 10 mg PO DAILY PRN 02/05/14 02/11/22 History buPROPion HCL [Wellbutrin XL] 300 mg PO HS 02/05/14 02/11/22 History Fenofibrate [Lofibra] 160 mg PO DAILY 07/10/19 02/11/22 History Levothyroxine Sodium [Synthroid] 100 mcg PO DAILY 07/10/19 02/11/22 History Pantoprazole Sodium 40 mg PO DAILY 07/10/19 02/11/22 History Propranolol HCl [Inderal] 60 mg PO BID 07/10/19 02/11/22 History Zonisamide [Zonegran] 200 mg PO HS 07/10/19 02/11/22 History Famotidine 40 mg PO HS 01/05/22 02/11/22 History Oxybutynin Chloride [Oxybutynin 10 mg PO HS 01/05/22 02/11/22 History Chloride ER] QUEtiapine XR [SEROquel XR] 50 mg PO DAILY 01/05/22 02/11/22 History QUEtiapine [SEROquel] 100 mg PO HS 01/05/22 02/11/22 History Semaglutide [Ozempic] 1 mg SQ MARCUS 01/05/22 02/11/22 History Botox 1 dose IM Q90D 02/11/22 02/11/22 History Ciprofloxacin HCl [Cipro] 500 mg PO BID 02/11/22 02/11/22 History Divalproex [Depakote] 500 mg PO DIRECTED PRN 02/11/22 02/11/22 History Docusate [Colace] 100 mg PO DAILY PRN 02/11/22 02/11/22 History Ketoconazole [Ketoconazole 2%] 1 applic TOPICAL DAILY PRN 02/11/22 02/11/22 History Magnesium(Unknown Dose) 1 tab PO DAILY 02/11/22 02/11/22 History Melatonin 5 - 10 mg PO HS PRN 02/11/22 02/11/22 History Metoclopramide [Reglan] 10 mg PO BID 02/11/22 02/11/22 History Ondansetron Odt [Zofran Odt] 8 mg PO Q8H PRN 02/11/22 02/11/22 History Promethazine [Phenergan] 25 mg PO Q8H PRN 02/11/22 02/11/22 History Riboflavin (Vitamin B2) [Vitamin 50 mg PO DAILY 02/11/22 02/11/22 History B-2] Ubrogepant [Ubrelvy] 100 mg PO DAILY PRN 02/11/22 02/11/22 History Vitamin D(Unknown Dose) 1 tab PO DAILY 02/11/22 02/11/22 History Vyepti 1 dose IVPB Q90D 02/11/22 02/11/22 History metroNIDAZOLE 0.75% CREAM 1 applic TOPICAL DAILY PRN 02/11/22 02/11/22 History [Metrocream 0.75%] polyethylene glycoL 3350 [Miralax] 17 gm PO DAILY PRN 02/11/22 02/11/22 History Allergies Allergy/AdvReac Type Severity Reaction Status Date / Time meperidine HCl [From Demerol] Allergy Severe Vomiting Verified 02/10/22 18:28 amitriptyline [From Elavil] Allergy Unknown Verified 02/10/22 18:28 duloxetine [From Cymbalta] Allergy Unknown Verified 02/10/22 18:28 escitalopram [From Lexapro] Allergy Unknown Verified 02/10/22 18:28 metformin Allergy Vomiting Verified 02/10/22 18:28 propoxyphene Allergy Unknown Verified 02/10/22 18:28 [From Darvocet-N] topiramate [From Topamax] Allergy Unknown Verified 02/10/22 18:28 tramadol Allergy Unknown Verified 02/10/22 18:28 venlafaxine [From Effexor] Allergy Unknown Verified 02/10/22 18:28 escitalopram oxalate AdvReac Rash/Hives Verified 02/10/22 18:28 [From Lexapro] Physical Exam Vitals: Vital Signs Temp Pulse Pulse Pulse Resp BP BP 02/11/22 13:07 97.8 F 89 16 125/71 02/11/22 12:15 91 16 124/60 02/11/22 12:00 92 16 130/60 02/11/22 11:46 94 16 123/60 02/11/22 11:30 93 16 119/58 02/11/22 11:23 97.0 F L 96 12 129/60 02/11/22 10:35 97 F L 97 17 161/76 02/11/22 07:00 97.6 F 95 18 111/61 02/11/22 01:52 98.8 F 94 19 105/69 02/10/22 18:25 99 F 106 H 18 126/78 Pulse Ox 02/11/22 13:07 95 02/11/22 12:15 96 02/11/22 12:00 96 02/11/22 11:46 95 02/11/22 11:30 98 02/11/22 11:23 96 02/11/22 10:35 95 02/11/22 07:00 96 02/11/22 01:52 94 L 02/10/22 18:25 98 Intake and Output 02/11/22 02/11/22 02/11/22 06:59 14:59 22:59 Intake Total 200 Output Total 0 Balance 200 Intake: IV 200 Output: Estimated Blood Loss 0 Other: Voiding Method Toilet Toilet # Voids 1 1 Weight 99.79 kg In general patient is alert and oriented x 3 in no distress HEENT head normocephalic and atraumatic Neck is supple no JVD no goiter no lymphadenopathy no carotid bruit Chest examination is clear to auscultation no crackles no wheezing Cardiac exam reveals regular heart sounds S1 and S2 no gallops no murmurs Abdomen is soft nontender no organomegaly with normal bowel sounds Extremity exam reveals no edema no cyanosis or clubbing Neurological examination reveals no gross focal deficits Results CBC & Chem 7: 02/10/22 21:16 02/10/22 21:16 Labs: Abnormal Lab Results - Last 24 Hours (Table) 02/10/22 02/10/22 02/10/22 Range/Units 18:29 21:16 21:16 WBC 15.1 H (3.8-10.6) k/uL Neutrophils # 12.9 H (1.3-7.7) k/uL Sodium 135 L (137-145) mmol/L Potassium 3.4 L (3.5-5.1) mmol/L Carbon Dioxide 19 L (22-30) mmol/L BUN 24 H (7-17) mg/dL Creatinine 1.25 H (0.52-1.04) mg/dL Glucose 228 H (74-99) mg/dL POC Glucose (mg/dL) (70-110) mg/dL Urine Appearance Cloudy H (Clear) Urine Protein 3+ H (Negative) Urine Ketones Trace H (Negative) Urine Blood Moderate H (Negative) Ur Leukocyte Esterase Large H (Negative) Urine RBC 6 H (0-5) /hpf Urine WBC 164 H (0-5) /hpf Ur Squamous Epith Cells 17 H (0-4) /hpf Urine Bacteria Rare H (None) /hpf Urine Mucus Few H (None) /hpf 02/11/22 02/11/22 Range/Units 06:52 13:01 WBC (3.8-10.6) k/uL Neutrophils # (1.3-7.7) k/uL Sodium (137-145) mmol/L Potassium (3.5-5.1) mmol/L Carbon Dioxide (22-30) mmol/L BUN (7-17) mg/dL Creatinine (0.52-1.04) mg/dL Glucose (74-99) mg/dL POC Glucose (mg/dL) 142 H 218 H (70-110) mg/dL Urine Appearance (Clear) Urine Protein (Negative) Urine Ketones (Negative) Urine Blood (Negative) Ur Leukocyte Esterase (Negative) Urine RBC (0-5) /hpf Urine WBC (0-5) /hpf Ur Squamous Epith Cells (0-4) /hpf Urine Bacteria (None) /hpf Urine Mucus (None) /hpf Microbiology - Last 24 Hours (Table) 02/10/22 18:29 Urine Culture - Preliminary Urine,Clean Catch Thrombosis Risk Factor Assmnt - Choose All That Apply Each Factor Represents 1 point: Age 41-60 years, Obesity (BMI >25) Other Risk Factors: No Other congenital or acquired thrombophilia - If yes, enter type in comment: No Thrombosis Risk Factor Assessment Total Risk Factor Score: 2 Thrombosis Risk Factor Assessment Level: Low Risk Assessment and Plan Plan: Urinary tract infection Sepsis as evidenced by fever on presentation, elevated white blood count, and borderline lactic acid of 2.2 Right ureter calculus with evidence of right sided hydronephrosis Dehydration with acute kidney injury with elevated BUN and creatinine Underlying history of diabetes mellitus Underlying history of obstructive sleep apnea maintained on CPAP Underlying history of hypothyroidism Underlying history of migraine headache Underlying history of kidney stones At this time patient was seen and examined, home medications reviewed and reordered Urology consultation requested Continue with IV fluid hydration, continue with IV antibiotic ceftriaxone Medication and labs were reviewed will follow in a.m.
[2022-02-11 20:30] LABS: Glucose,Whole Blood 155 mg/dL (70-110)
[2022-02-11] MEDS: PROPRANOLOL 20 MG TAB PO SCH (20:37)
[2022-02-11] MEDS: METOCLOPRAMIDE 10 MG TAB PO SCH (20:38)
[2022-02-11] MEDS ORDERED: FAMOTIDINE 20 MG TAB PO SCH (21:00)
[2022-02-11] MEDS ORDERED: buPROPion XL 300 MG TAB.ER.24H PO SCH (21:00)
[2022-02-11] MEDS ORDERED: QUEtiapine 100 MG TAB PO SCH (21:00)
[2022-02-11] MEDS ORDERED: ZONISAMIDE 100 MG CAP PO SCH (21:00)
[2022-02-11] MEDS ORDERED: OXYBUTYNIN 10 MG TAB.ER.24 PO SCH (21:00)
[2022-02-12] MEDS: SODIUM CHLORIDE 0.9% 1,000 ML IV SCH (00:15)
[2022-02-12] MEDS ORDERED: LEVOTHYROXINE 100 MCG TAB PO SCH (06:30)
[2022-02-12 07:04] LABS: Glucose,Whole Blood 127 mg/dL (70-110)
[2022-02-12] MEDS ORDERED: PANTOPRAZOLE 40 MG TABLET PO SCH (07:30)
--- NOTE | 2022-02-12 08:03 | P.PN ---
Subjective Progress Note Date: 02/12/22 The patient is sp stent placement for ureteral obstruction right either due to edema or a stone. Since she has a uti only stent was placed. She will be set up for stent removal and ureteroscopy in a week or so. She can go home at any time from a urological standpoint. I added ditropan for urgency Objective - Vital Signs Vital signs: Vital Signs Temp 98.1 F 02/12/22 07:00 Pulse 87 02/12/22 07:00 Resp 16 02/12/22 07:00 BP 127/69 02/12/22 07:00 Pulse Ox 95 02/12/22 07:00 FiO2 Intake & Output 02/11/22 02/12/22 02/12/22 18:59 06:59 18:59 Intake Total 200 Output Total 0 Balance 200 Intake: IV 200 Output: Estimated Blood Loss 0 Other: Voiding Method Toilet Toilet # Voids 1 3 - Labs CBC & Chem 7: 02/10/22 21:16 02/10/22 21:16 Labs: Abnormal Lab Results - Last 24 Hours (Table) 02/11/22 02/11/22 02/11/22 Range/Units 13:01 16:57 20:29 POC Glucose (mg/dL) 218 H 214 H 155 H (70-110) mg/dL 02/12/22 Range/Units 07:03 POC Glucose (mg/dL) 127 H (70-110) mg/dL Microbiology - Last 24 Hours (Table) 02/10/22 23:57 Blood Culture - Preliminary Blood No Growth after 24 hours 02/10/22 23:42 Blood Culture - Preliminary Blood No Growth after 24 hours 02/10/22 18:29 Urine Culture - Final Urine,Clean Catch
[2022-02-12] MEDS: INSULIN ASPART (NovoLOG) 100 UNIT/ML VIAL SQ SCH ×2 (08:24→12:38)
[2022-02-12] MEDS: PROPRANOLOL 20 MG TAB PO SCH (08:31)
[2022-02-12] MEDS: METOCLOPRAMIDE 10 MG TAB PO SCH (08:32)
[2022-02-12 08:59] LABS: African American GFR (CKD) 85.8 (60.0-200.0); Albumin 3.1 g/dL (3.8-4.9); Albumin/Globulin Ratio 1.35 (1.60-3.17); Anion Gap 12.4 mmol/L (10.00-18.00); BUN/Creat Ratio 16.33 Ratio (12.00-20.00); Blood Urea Nitrogen 14.7 mg/dL (9.0-27.0); Carbon Dioxide 19.6 mmol/L (20.0-27.5); Globulin 2.3 g/dL (1.6-3.3); Potassium 3.2 mmol/L (3.5-5.5); Total Bilirubin 0.4 mg/dL (0.30-1.20); Total Protein 5.4 g/dL (6.2-8.2)
[2022-02-12] MEDS ORDERED: CHOLECALCIFEROL 125 MCG (5000 IU) TABLET PO SCH (09:00)
[2022-02-12] MEDS ORDERED: QUEtiapine 25 MG TAB PO SCH (09:00)
[2022-02-12] MEDS ORDERED: MAGNESIUM OXIDE 400 MG TAB PO SCH (09:00)
[2022-02-12] MEDS ORDERED: FENOFIBRATE 160 MG TAB PO SCH (09:00)
[2022-02-12] MEDS ORDERED: NON FORMULARY DRUG (Riboflavin (Vitamin B2) [Vitamin B-2] 50 MG Tablet) PO SCH (09:00)
[2022-02-12] MEDS ORDERED: OXYBUTYNIN 10 MG TAB.ER.24 PO SCH (09:00)
[2022-02-12] MEDS ORDERED: Potassium Replacement Protocol 1 EACH MISC MISCELLANE PRN (10:34)
[2022-02-12 11:05] LABS: Basophils # (A) 0.05 X 10*3/uL (0.00-0.10); Basophils % (A) 0.6 %; Eosinophils # (A) 0.05 X 10*3/uL (0.04-0.35); Eosinophils % (A) 0.6 %; HCT 31.6 % (37.2-46.3); HGB 9.9 g/dL (12.0-15.0); Immature Grans, Automated 0.5 %; Lymphocytes # (A) 1.57 X 10*3/uL (0.90-5.00); Lymphocytes % (A) 20.2 %; MCH 29.1 pg (27.0-32.0); MCHC 31.3 g/dL (32.0-37.0); MCV 92.9 fL (80.0-97.0); Mean Platelet Volume 11.9 fL (9.5-12.2); Monocytes # (A) 0.99 X 10*3/uL (0.20-1.00); Monocytes % (A) 12.7 %; NRBC Per 100 WBC 0 /100 WBCS (0.0-0.0); Neutrophils # (A) 5.08 X 10*3/uL (1.80-7.70); Neutrophils % (A) 65.4 %; Platelet Count 181 X 10*3/uL (140-440); RDW 14.5 % (11.5-14.5); WBC 7.78 X 10*3/uL (4.50-10.00)
[2022-02-12] MEDS: POTASSIUM CHLORIDE ER 20 MEQ TAB.ER PO SCH ×2 (11:16→12:38)
[2022-02-12 12:00] LABS: Glucose,Whole Blood 185 mg/dL (70-110)
[2022-02-12 13:44] VITALS: BP 114/68; PULSE 81; RESP 18; TEMP 97.3
--- NOTE | 2022-02-12 13:52 | P.DS ---
Providers Date of admission: 02/10/22 23:21 Expected date of discharge: 02/12/22 Attending physician: Sulma Malin Consults: 02/10/22 23:27 Consult Physician Routine Consulting Provider: Brett Gupta Consult Reason/Comments: uti/ hematuria/nephroliathsis Do you want consulting provider notified?: Yes, Notify in am Primary care physician: Jaqueline Mota [facility] Course: Diagnosis on discharge: Urinary tract infection Sepsis as evidenced by fever on presentation, elevated white blood count, and borderline lactic acid of 2.2 Right ureter calculus with evidence of right sided hydronephrosis Dehydration with acute kidney injury with elevated BUN and creatinine Underlying history of diabetes mellitus Underlying history of obstructive sleep apnea maintained on CPAP Underlying history of hypothyroidism Underlying history of migraine headache Underlying history of kidney stones Hospital course: Kelley Reddy, he is a 51-year-old female who presented to [facility] emergency room with a chief complaint of worsening nausea and vomiting with inability to keep medications down, patient has a known history of kidney stone and urinary tract infection, she had history of lithotripsy few weeks ago, she was also maintained on oral Bactrim and Zofran for nausea, however patient was having worsening nausea and vomiting and she decided to come to emergency room. She was evaluated in emergency room vital examination on presentation revealed a temperature of 99 pulse 106 respiration 18 blood pressure 126/78 pulse ox 98% on room air Laboratory data revealed a white blood count of 15.1 hemoglobin 12.5 platelet count 206 sodium 135 potassium 3.4 chloride 101 CO2 19 BUN 24 creatinine 1.25 glucose on presentation was 228 Testing in the emergency room revealed computed tomography scan of the abdomen and pelvis was done in the emergency room and revealed evidence of obstructing calculus in the proximal right ureter with right sided hydronephrosis Patient was admitted to medical floor she was started on IV fluids and IV antibiotics and urology consultation was requested On 02/12/2022 patient was seen and examined on the medical floor she is alert and oriented 3 in no apparent distress there is no fever or chills no headache or dizziness no chest pain no shortness of breath no cough no nausea or vomiting no abdominal pain no diarrhea no urinary symptoms. Patient was seen by urology and was cleared for discharge Ditropan XL 10 mg by mouth daily was added to regimen by urology patient will be discharged home today she will be followed by her primary care physician within one week follow-up with Dr. Moss urology in 1 week Patient Condition at Discharge: Fair Plan - Discharge Summary New Discharge Prescriptions: New Oxybutynin ER [Ditropan Xl] 10 mg PO DAILY tab Continue Cetirizine HCl [Zyrtec] 10 mg PO DAILY PRN PRN Reason: Allergy Symptoms buPROPion HCL [Wellbutrin XL] 300 mg PO HS Propranolol HCl [Inderal] 60 mg PO BID Pantoprazole Sodium 40 mg PO DAILY Levothyroxine Sodium [Synthroid] 100 mcg PO DAILY Fenofibrate [Lofibra] 160 mg PO DAILY Zonisamide [Zonegran] 200 mg PO HS Famotidine 40 mg PO HS Magnesium(Unknown Dose) 1 tab PO DAILY Docusate [Colace] 100 mg PO DAILY PRN PRN Reason: Constipation Melatonin 5 - 10 mg PO HS PRN PRN Reason: Insomnia Metoclopramide [Reglan] 10 mg PO BID Ondansetron Odt [Zofran ODT] 8 mg PO Q8H PRN PRN Reason: Nausea metroNIDAZOLE 0.75% CREAM [Metrocream 0.75%] 1 applic TOPICAL DAILY PRN PRN Reason: forehead rash Ketoconazole [Ketoconazole 2%] 1 applic TOPICAL DAILY PRN PRN Reason: rosacea Ubrogepant [Ubrelvy] 100 mg PO DAILY PRN PRN Reason: Migraine Headache QUEtiapine [SEROquel] 100 mg PO HS QUEtiapine XR [SEROquel XR] 50 mg PO DAILY Semaglutide [Ozempic] 1 mg SQ MARCUS Oxybutynin Chloride [Oxybutynin Chloride ER] 10 mg PO HS Vitamin D(Unknown Dose) 1 tab PO DAILY Riboflavin (Vitamin B2) [Vitamin B-2] 50 mg PO DAILY Promethazine [Phenergan] 25 mg PO Q8H PRN PRN Reason: Nausea polyethylene glycoL 3350 [Miralax] 17 gm PO DAILY PRN PRN Reason: Constipation Divalproex [Depakote] 500 mg PO DIRECTED PRN PRN Reason: migraines Ciprofloxacin HCl [Cipro] 500 mg PO BID Vyepti 1 dose IVPB Q90D Botox 1 dose IM Q90D Discharge Medication List Cetirizine HCl [Zyrtec] 10 mg PO DAILY PRN 02/05/14 [History] buPROPion HCL [Wellbutrin XL] 300 mg PO HS 02/05/14 [History] Fenofibrate [Lofibra] 160 mg PO DAILY 07/10/19 [History] Levothyroxine Sodium [Synthroid] 100 mcg PO DAILY 07/10/19 [History] Pantoprazole Sodium 40 mg PO DAILY 07/10/19 [History] Propranolol HCl [Inderal] 60 mg PO BID 07/10/19 [History] Zonisamide [Zonegran] 200 mg PO HS 07/10/19 [History] Famotidine 40 mg PO HS 01/05/22 [History] Oxybutynin Chloride [Oxybutynin Chloride ER] 10 mg PO HS 01/05/22 [History] QUEtiapine XR [SEROquel XR] 50 mg PO DAILY 01/05/22 [History] QUEtiapine [SEROquel] 100 mg PO HS 01/05/22 [History] Semaglutide [Ozempic] 1 mg SQ MARCUS 01/05/22 [History] Botox 1 dose IM Q90D 02/11/22 [History] Ciprofloxacin HCl [Cipro] 500 mg PO BID 02/11/22 [History] Divalproex [Depakote] 500 mg PO DIRECTED PRN 02/11/22 [History] Docusate [Colace] 100 mg PO DAILY PRN 02/11/22 [History] Ketoconazole [Ketoconazole 2%] 1 applic TOPICAL DAILY PRN 02/11/22 [History] Magnesium(Unknown Dose) 1 tab PO DAILY 02/11/22 [History] Melatonin 5 - 10 mg PO HS PRN 02/11/22 [History] Metoclopramide [Reglan] 10 mg PO BID 02/11/22 [History] Ondansetron Odt [Zofran ODT] 8 mg PO Q8H PRN 02/11/22 [History] Promethazine [Phenergan] 25 mg PO Q8H PRN 02/11/22 [History] Riboflavin (Vitamin B2) [Vitamin B-2] 50 mg PO DAILY 02/11/22 [History] Ubrogepant [Ubrelvy] 100 mg PO DAILY PRN 02/11/22 [History] Vitamin D(Unknown Dose) 1 tab PO DAILY 02/11/22 [History] Vyepti 1 dose IVPB Q90D 02/11/22 [History] metroNIDAZOLE 0.75% CREAM [Metrocream 0.75%] 1 applic TOPICAL DAILY PRN 02/11/22 [History] polyethylene glycoL 3350 [Miralax] 17 gm PO DAILY PRN 02/11/22 [History] Oxybutynin ER [Ditropan Xl] 10 mg PO DAILY tab 02/12/22 [Rx] Follow up Appointment(s)/Referral(s): Jaqueline Mota MD [Primary Care Provider] - 1-2 days
[2022-02-15] MEDS ORDERED: Semaglutide [Ozempic] 1 MG/0.75 ML Each SQ SCH (09:00)
== END 2022-02-12 14:14 | disposition home or self-care (01) ==
LOC: EC 17:47 → 6NMEDSUR 23:21
PROVIDERS: ADMIT Internal Medicine; ATTEND Internal Medicine
DX: N13.6 Pyonephrosis (principal); N20.2 Calculus of kidney with calculus of ureter; E86.0 Dehydration; A41.9 Sepsis, unspecified organism; E03.9 Hypothyroidism, unspecified; N17.9 Acute kidney failure, unspecified; E11.9 Type 2 diabetes mellitus without complications; G43.909 Migraine, unspecified, not intractable, without status migrainosus; G47.33 Obstructive sleep apnea (adult) (pediatric); K21.9 Gastro-esophageal reflux disease without esophagitis; F41.9 Anxiety disorder, unspecified; J84.10 Pulmonary fibrosis, unspecified; K76.0 Fatty (change of) liver, not elsewhere classified; R16.0 Hepatomegaly, not elsewhere classified; Z79.899 Other long term (current) drug therapy; Z79.890 Hormone replacement therapy; Z88.8 Allergy status to other drugs, medicaments and biological substances; Z88.5 Allergy status to narcotic agent; Z90.49 Acquired absence of other specified parts of digestive tract; Z87.891 Personal history of nicotine dependence; Z80.9 Family history of malignant neoplasm, unspecified; Z87.442 Personal history of urinary calculi; Z32.02 Encounter for pregnancy test, result negative
CPT/HCPCS: 96376; 96365; 96366; 96375 ×2; 99285; 36415; 80053 ×2; 83605; 85025 ×2; 81001; 81025; 87040; 87086; 74176; 52332; G0378 ×3; C2625; C1769; J2250; J0330; J2765; J2405 ×2; J0696 ×2; J3010; J1885; J2704; J2001

== ENCOUNTER 2023-03-15 15:45 | Observation (INO) | payer MEDICARE ==
--- NOTE | 2023-03-15 16:54 | ED ---
Abdominal Pain HPI - General Source: patient, RN notes reviewed Mode of arrival: ambulatory Limitations: no limitations - History of Present Illness MD Complaint: flank pain <Kim Ahmadi - Last Filed: 03/15/23 16:52> - History of Present Illness Onset/Timin -: hour(s) Location: L flank Radiation: LLQ Migration to: no migration Severity: severe Quality: sharp Consistency: colicky Improves With: nothing Worsens With: nothing Associated Symptoms: nausea <Luis Mcnally - Last Filed: 03/16/23 00:48> - General Chief Complaint: Abdominal Pain Stated Complaint: abd/back pain Time Seen by Provider: 03/15/23 16:50 - History of Present Illness Initial Comments: This is a 52-year-old female who presents to the emergency department for left flank pain. States that she has a history of kidney stones, and this feels the same. She has required intervention for kidney stone removal in the past. (Kim Ahmadi) Patient's 52-year-old woman with history of previous kidney stone requiring stenting. The patient states about 2 hours ago she had pain develop and left flank radiating a left groin. She was riding in a car at the time. Pain is sharp and very similar to previous kidney stone related pains. No fever or chills. No change in urination or bowel movements. She has had associated nausea. (Luis Mcnally) - Related Data Home Medications Medication Instructions Recorded Confirmed Cetirizine HCl [Zyrtec] 10 mg PO DAILY PRN 02/05/14 03/15/23 buPROPion HCL [Wellbutrin XL] 300 mg PO HS 02/05/14 03/15/23 Fenofibrate [Lofibra] 160 mg PO DAILY 07/10/19 03/15/23 Levothyroxine Sodium [Synthroid] 100 mcg PO DAILY 07/10/19 03/15/23 Pantoprazole Sodium 40 mg PO DAILY 07/10/19 03/15/23 Propranolol HCl [Inderal] 60 mg PO BID 07/10/19 03/15/23 Zonisamide [Zonegran] 200 mg PO HS 07/10/19 03/15/23 Famotidine 40 mg PO HS 01/05/22 03/15/23 QUEtiapine XR [SEROquel XR] 50 mg PO DAILY 01/05/22 03/15/23 QUEtiapine [SEROquel] 100 mg PO HS 01/05/22 03/15/23 Botox 1 dose IM Q90D 02/11/22 03/15/23 Melatonin 5 - 10 mg PO HS PRN 02/11/22 03/15/23 Metoclopramide [Reglan] 10 mg PO BID 02/11/22 03/15/23 Ubrogepant [Ubrelvy] 100 mg PO DAILY PRN 02/11/22 03/15/23 Vyepti 1 dose IVPB Q90D 02/11/22 03/15/23 Cholecalciferol [Vitamin D3 (25 25 mcg PO DAILY 03/15/23 03/15/23 Mcg = 1000 Iu)] Docusate [Colace] 100 mg PO DAILY PRN 03/15/23 03/15/23 Linaclotide [Linzess] 145 mcg PO HS 03/15/23 03/15/23 Losartan Potassium [Cozaar] 25 mg PO DAILY 03/15/23 03/15/23 Magnesium 250 mg PO DAILY 03/15/23 03/15/23 Pioglitazone [Actos] 15 mg PO HS 03/15/23 03/15/23 Riboflavin (Vitamin B2) [Vitamin 50 mg PO DAILY 03/15/23 03/15/23 B-2] Semaglutide [Ozempic] 2 mg SQ MARCUS 03/15/23 03/15/23 Allergies Allergy/AdvReac Type Severity Reaction Status Date / Time meperidine HCl [From Demerol] Allergy Severe Vomiting Verified 03/15/23 16:03 amitriptyline [From Elavil] Allergy Unknown Verified 03/15/23 16:03 duloxetine [From Cymbalta] Allergy Unknown Verified 03/15/23 16:03 escitalopram [From Lexapro] Allergy Unknown Verified 03/15/23 16:03 metformin Allergy Vomiting Verified 03/15/23 16:03 propoxyphene Allergy Unknown Verified 03/15/23 16:03 [From Darvocet-N] topiramate [From Topamax] Allergy Unknown Verified 03/15/23 16:03 tramadol Allergy Unknown Verified 03/15/23 16:03 venlafaxine [From Effexor] Allergy Unknown Verified 03/15/23 16:03 escitalopram oxalate AdvReac Rash/Hives Verified 03/15/23 16:03 [From Lexapro] Review of Systems ROS Other: All systems not noted in ROS Statement are negative. <Kim Ahmadi - Last Filed: 03/15/23 16:52> ROS Other: All systems not noted in ROS Statement are negative. Constitutional: Denies: fever, chills Respiratory: Denies: cough, dyspnea Cardiovascular: Denies: chest pain, palpitations, edema, syncope Gastrointestinal: Reports: abdominal pain, nausea. Denies: vomiting, diarrhea, melena, hematochezia Genitourinary: Denies: dysuria, frequency, hematuria Musculoskeletal: Denies: back pain Skin: Denies: rash Neurological: Denies: headache <Luis Mcnally - Last Filed: 03/16/23 00:48> ROS Statement: Those systems with pertinent positive or pertinent negative responses have been documented in the HPI. Past Medical History Past Medical History: Diabetes Mellitus, GERD/Reflux, Hypertension, Osteoarthritis (OA), Sleep Apnea/CPAP/BIPAP, Thyroid Disorder Additional Past Medical History / Comment(s): migraines, diarrhea/constipation, kidney stones, no cpap used, History of Any Multi-Drug Resistant Organisms: None Reported Past Surgical History: Cholecystectomy, Orthopedic Surgery Additional Past Surgical History / Comment(s): faith knee arthroscopies, left knee ligament replacement, plantar faciitis (Not sure which foot), 4 surgeries for kidney stones/cystoscopy/lithotripsy/stent rt, rt shoulder surgery for impinged nerve Past Anesthesia/Blood Transfusion Reactions: Motion Sickness, Postoperative Nausea & Vomiting (PONV) Past Psychological History: Anxiety Smoking Status: Never smoker Past Alcohol Use History: None Reported Past Drug Use History: None Reported - Past Family History Mother Family Medical History: Cancer Additional Family Medical History / Comment(s): breast cancer <Kim Ahmadi - Last Filed: 03/15/23 16:52> General Exam Limitations: no limitations <Kim Ahmadi - Last Filed: 03/15/23 16:52> General appearance: alert, in no apparent distress Head exam: Present: atraumatic, normocephalic Eye exam: Present: normal appearance. Absent: scleral icterus, conjunctival injection Neck exam: Present: normal inspection Respiratory exam: Present: normal lung sounds bilaterally. Absent: respiratory distress, wheezes, rales, rhonchi, stridor Cardiovascular Exam: Present: regular rate, normal rhythm, normal heart sounds. Absent: systolic murmur, diastolic murmur, rubs, gallop GI/Abdominal exam: Present: soft. Absent: distended, tenderness, guarding, rebound, rigid, mass Extremities exam: Present: normal inspection, normal capillary refill. Absent: pedal edema, calf tenderness Back exam: Present: normal inspection, CVA tenderness (L). Absent: CVA tenderness (R) Neurological exam: Present: alert Skin exam: Present: warm, dry, intact, normal color. Absent: rash <Luis Mcnally - Last Filed: 03/16/23 00:48> - General Exam Comments Initial Comments: Visual Physical Exam Vital signs reviewed General: Well-appearing, nontoxic, no acute distress. Head: Normocephalic, atraumatic Eyes: PERRLA, EOMI ENT: Airway patent Chest: Nonlabored breathing Skin: No visual rash, normal skin tone Neuro: Alert and oriented 3 Musculoskeletal: No gross abnormalities I performed the QuickNote portion of this chart. Signed Kim Ahmadi PA-C. (Kim Ahmadi) Course Vital Signs 03/15/23 03/15/23 03/15/23 16:03 18:18 18:52 Temperature 98.7 F 99.0 F Pulse Rate 78 77 88 Respiratory 16 18 18 Rate Blood Pressure 175/85 165/104 185/103 O2 Sat by Pulse 99 97 97 Oximetry Medical Decision Making - Lab Data Result diagrams: 03/15/23 19:25 03/15/23 18:01 <Luis Mcnally - Last Filed: 03/16/23 00:48> - Lab Data Lab Results 03/15/23 03/15/23 03/15/23 Range/Units 18:01 18:01 18:01 WBC (3.8-10.6) k/uL RBC (3.80-5.40) m/uL Hgb (11.4-16.0) gm/dL Hct (34.0-46.0) % MCV (80.0-100.0) fL MCH (25.0-35.0) pg MCHC (31.0-37.0) g/dL RDW (11.5-15.5) % Plt Count (150-450) k/uL MPV Neutrophils % % Lymphocytes % % Monocytes % % Eosinophils % % Basophils % % Neutrophils # (1.3-7.7) k/uL Lymphocytes # (1.0-4.8) k/uL Monocytes # (0-1.0) k/uL Eosinophils # (0-0.7) k/uL Basophils # (0-0.2) k/uL Sodium 136 L (137-145) mmol/L Potassium 4.6 (3.5-5.1) mmol/L Chloride 104 (98-107) mmol/L Carbon Dioxide 20 L (22-30) mmol/L Anion Gap 12 mmol/L BUN 20 H (7-17) mg/dL Creatinine 1.48 H (0.52-1.04) mg/dL Est GFR (CKD-EPI)AfAm 47 (>60 ml/min/1.73 sqM) Est GFR (CKD-EPI)NonAf 41 (>60 ml/min/1.73 sqM) Glucose 113 H (74-99) mg/dL Plasma Lactic Acid Holger 1.5 (0.7-2.0) mmol/L Calcium 10.0 (8.4-10.2) mg/dL Total Bilirubin 0.4 (0.2-1.3) mg/dL AST 26 (14-36) U/L ALT 16 (4-34) U/L Alkaline Phosphatase 59 (38-126) U/L Total Protein 7.5 (6.3-8.2) g/dL Albumin 4.4 (3.5-5.0) g/dL Amylase 46 (30-110) U/L Lipase 216 (23-300) U/L Urine Color Light Red Urine Appearance Cloudy H (Clear) Urine pH 5.5 (5.0-8.0) Ur Specific Minto 1.020 (1.001-1.035) Urine Protein 1+ H (Negative) Urine Glucose (UA) Negative (Negative) Urine Ketones Negative (Negative) Urine Blood Large H (Negative) Urine Nitrite Negative (Negative) Urine Bilirubin Negative (Negative) Urine Urobilinogen <2.0 (<2.0) mg/dL Ur Leukocyte Esterase Moderate H (Negative) Urine RBC >182 H (0-5) /hpf Urine WBC 49 H (0-5) /hpf Ur Squamous Epith Cells 5 H (0-4) /hpf Urine Bacteria Rare H (None) /hpf Hyaline Casts 14 H (0-2) /lpf Urine Mucus Rare H (None) /hpf Urine Yeast (Budding) Many H (None) /hpf 03/15/23 Range/Units 19:25 WBC 14.1 H (3.8-10.6) k/uL RBC 4.44 (3.80-5.40) m/uL Hgb 13.8 (11.4-16.0) gm/dL Hct 40.8 (34.0-46.0) % MCV 92.0 (80.0-100.0) fL MCH 31.1 (25.0-35.0) pg MCHC 33.8 (31.0-37.0) g/dL RDW 12.9 (11.5-15.5) % Plt Count 371 (150-450) k/uL MPV 8.5 Neutrophils % 75 % Lymphocytes % 17 % Monocytes % 5 % Eosinophils % 1 % Basophils % 1 % Neutrophils # 10.6 H (1.3-7.7) k/uL Lymphocytes # 2.4 (1.0-4.8) k/uL Monocytes # 0.7 (0-1.0) k/uL Eosinophils # 0.2 (0-0.7) k/uL Basophils # 0.1 (0-0.2) k/uL Sodium (137-145) mmol/L Potassium (3.5-5.1) mmol/L Chloride (98-107) mmol/L Carbon Dioxide (22-30) mmol/L Anion Gap mmol/L BUN (7-17) mg/dL Creatinine (0.52-1.04) mg/dL Est GFR (CKD-EPI)AfAm (>60 ml/min/1.73 sqM) Est GFR (CKD-EPI)NonAf (>60 ml/min/1.73 sqM) Glucose (74-99) mg/dL Plasma Lactic Acid Holger (0.7-2.0) mmol/L Calcium (8.4-10.2) mg/dL Total Bilirubin (0.2-1.3) mg/dL AST (14-36) U/L ALT (4-34) U/L Alkaline Phosphatase (38-126) U/L Total Protein (6.3-8.2) g/dL Albumin (3.5-5.0) g/dL Amylase (30-110) U/L Lipase (23-300) U/L Urine Color Urine Appearance (Clear) Urine pH (5.0-8.0) Ur Specific Minto (1.001-1.035) Urine Protein (Negative) Urine Glucose (UA) (Negative) Urine Ketones (Negative) Urine Blood (Negative) Urine Nitrite (Negative) Urine Bilirubin (Negative) Urine Urobilinogen (<2.0) mg/dL Ur Leukocyte Esterase (Negative) Urine RBC (0-5) /hpf Urine WBC (0-5) /hpf Ur Squamous Epith Cells (0-4) /hpf Urine Bacteria (None) /hpf Hyaline Casts (0-2) /lpf Urine Mucus (None) /hpf Urine Yeast (Budding) (None) /hpf Disposition <Kim Ahmadi - Last Filed: 03/15/23 16:52> Is patient prescribed a controlled substance at d/c from ED?: No <Luis Mcnally - Last Filed: 03/16/23 00:48> Clinical Impression: Hydronephrosis concurrent with and due to calculi of kidney and ureter, Nephrolithiasis, Abdominal pain Disposition: HOME SELF-CARE Condition: Good
[2023-03-15] MEDS ORDERED: MORPHINE SULFATE 4 MG/ML SYRINGE IV STA ×2 (18:55→19:58)
[2023-03-15] MEDS ORDERED: ONDANSETRON 4 MG/2 ML VIAL IVP STA ×2 (18:55→21:25)
[2023-03-15] MEDS ORDERED: SODIUM CHLORIDE 0.9% 1,000 ML IV STA (18:55)
--- NOTE | 2023-03-15 19:27 | CT ---
EXAMINATION TYPE: CT abdomen pelvis wo con CT DLP: 974.4 mGycm, Automated exposure control for dose reduction was used. DATE OF EXAM: 03/15/2023 7:19 PM COMPARISON: CT abdomen pelvis most recent from 02/10/2022 CLINICAL INDICATION:Female, 52 years old with history of L flank pain; left flank pain TECHNIQUE: Axial CT of the abdomen and pelvis. Sagittal and coronal reformats were created on a [employer] workstation. Contrast used: (none if empty) Oral contrast used: without Oral Contrast (none if empty) FINDINGS: LOWER CHEST: Unremarkable ABDOMEN LIVER: Diffusely hypoattenuating parenchyma. GALLBLADDER AND BILE DUCTS: The gallbladder surgically absent. PANCREAS: Unremarkable. SPLEEN: Unremarkable. ADRENAL GLANDS: Unremarkable. KIDNEYS AND URETERS: Mild left hydronephrosis secondary obstructing 19 mm calculus at the ureteropelv ic junction.. Additional nonobstructing left renal calculi. Right nonobstructing calculi measuring up to 6 mm. There is dilation of the proximal right collecting system. No obstructing calculus visualiz ed. PELVIS BLADDER: Unremarkable REPRODUCTIVE: Unremarkable. ABDOMEN & PELVIS STOMACH AND BOWEL: No evidence of bowel obstruction. PERITONEUM/RETROPERITONEUM: No evidence of pneumoperitoneum or free fluid. VASCULATURE: No evidence of aortic aneurysm. MUSCULOSKELETAL: No acute osseous abnormalities LYMPH NODES: No gross evidence for lymphadenopathy. SOFT TISSUE/ABDOMINAL WALL: Bilateral fat-containing inguinal hernias. IMPRESSION: 1. Mild left hydronephrosis secondary obstructing 19 mm calculus at the ureteropelvic junction.. 2. Additional nonobstructing renal calculi bilaterally. 3. Ectasia of the proximal right renal collecting system likely secondary to obstructing calculus se en on 12/04/2021. 4. Hepatic steatosis.
[2023-03-15 19:32] LABS: Appearance,Urine Cloudy (Clear); Bacteria,Urine Rare /hpf; Bilirubin,Urine Negative (Negative); Blood,Urine Large (Negative); Budding Yeast,Urine Many /hpf; Color,Urine Light Red; Glucose,Urine (UA) Negative (Negative); Hyaline Casts,Urine 14 /lpf (0-2); Ketones,Urine Negative (Negative); Leukocyte Esterase,Urine Moderate (Negative); Mucus,Urine Rare /hpf; Nitrite,Urine Negative (Negative); PH, Urine 5.5 (5.0-8.0); Protein,Urine 1+ (Negative); RBC,Urine >182 /hpf (0-5); Squamous Epithelial Cell,Urine 5 /hpf (0-4); Urobilinogen,Urine <2.0 mg/dL (<2.0); WBC,Urine 49 /hpf (0-5)
[2023-03-15 19:49] LABS: Basophils # (A) 0.1 k/uL (0-0.2); Basophils % (A) 1 %; Eosinophils # (A) 0.2 k/uL (0-0.7); Eosinophils % (A) 1 %; HCT 40.8 % (34.0-46.0); HGB 13.8 gm/dL (11.4-16.0); Lymphocytes # (A) 2.4 k/uL (1.0-4.8); Lymphocytes % (A) 17 %; MCH 31.1 pg (25.0-35.0); MCHC 33.8 g/dL (31.0-37.0); Mean Platelet Volume 8.5; Monocytes # (A) 0.7 k/uL (0-1.0); Monocytes % (A) 5 %; Neutrophils # (A) 10.6 k/uL (1.3-7.7); Neutrophils % (A) 75 %; Platelet Count 371 k/uL (150-450); RBC 4.44 m/uL (3.80-5.40); RDW 12.9 % (11.5-15.5); WBC 14.1 k/uL (3.8-10.6)
[2023-03-15] MEDS ORDERED: NALOXONE 0.4 MG/ML 1 ML VIAL IV PRN (20:04)
[2023-03-15] MEDS ORDERED: ONDANSETRON 4 MG/2 ML VIAL IVP PRN (20:04)
[2023-03-15] MEDS ORDERED: MORPHINE SULFATE 4 MG/ML SYRINGE IV PRN (20:04)
[2023-03-15] MEDS: SODIUM CHLORIDE 0.9% 1,000 ML IV SCH (20:26)
[2023-03-15 21:09] LABS: ALT 16 U/L (4-34); AST 26 U/L (14-36); African American GFR (CKD) 47 (>60 ml/min/1.73 sqM); Albumin 4.4 g/dL (3.5-5.0); Alkaline Phosphatase 59 U/L (38-126); Amylase 46 U/L (30-110); Anion Gap 12 mmol/L; Blood Urea Nitrogen 20 mg/dL (7-17); Carbon Dioxide 20 mmol/L (22-30); Chloride 104 mmol/L (98-107); Glucose 113 mg/dL (74-99); Lipase 216 U/L (23-300); Non-African American GFR(CKD) 41 (>60 ml/min/1.73 sqM); Potassium 4.6 mmol/L (3.5-5.1); Sodium 136 mmol/L (137-145); Total Bilirubin 0.4 mg/dL (0.2-1.3); Total Protein 7.5 g/dL (6.3-8.2)
[2023-03-16] MEDS ORDERED: NON FORMULARY DRUG (Ubrogepant [Ubrelvy] 100 MG Tablet) PO PRN (00:49)
[2023-03-16] MEDS ORDERED: DOCUSATE 100 MG CAP PO PRN (00:49)
[2023-03-16] MEDS ORDERED: KETOROLAC 15 MG/ML 1 ML VIAL IVP STA (02:39)
[2023-03-16] MEDS ORDERED: LABETALOL 5 MG/ML VIAL MDV IVP STA (02:39)
[2023-03-16] MEDS ORDERED: METOCLOPRAMIDE 5 MG/ML 2 ML VIAL IVP STA (02:39)
[2023-03-16] MEDS ORDERED: LEVOTHYROXINE 100 MCG TAB PO SCH (07:00)
[2023-03-16] MEDS ORDERED: KETOROLAC 15 MG/ML 1 ML VIAL IVP PRN (07:45)
--- NOTE | 2023-03-16 08:08 | P.GSHP ---
History of Present Illness H&P Date: 03/16/23 52-year-old female known to me for kidney stones. She does have a history of multiple procedures to remove the stones. 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 She presents with a 24-hour history of severe left flank pain. She had a computed tomography scan in the emergency room identifying a 13 mm proximal ureteral stone. She is admitted for pain control. She has had no fever. She has had nausea and vomiting. - Constitutional Constitutional: Denies chills, Denies fever - EENT Eyes: denies blurred vision, denies pain Ears, nose, mouth and throat: Denies headache, Denies sore throat - Cardiovascular Cardiovascular: Denies chest pain, Denies shortness of breath - Respiratory Respiratory: Denies cough, Denies 7 - Gastrointestinal Gastrointestinal: Denies abdominal pain, Denies diarrhea, Denies nausea, Denies vomiting - Genitourinary (Female) Genitourinary: Denies dysuria, Denies hematuria - Genitourinary (Male) Genitourinary: Denies dysuria, Denies hematuria - Musculoskeletal Musculoskeletal: Denies myalgias - Integumentary Integumentary: Denies pruritus, Denies rash - Neurological Neurological: Denies numbness, Denies weakness - Psychiatric Psychiatric: Denies anxiety, Denies depression - Endocrine Endocrine: Denies fatigue, Denies weight change Past Medical History Past Medical History: Diabetes Mellitus, GERD/Reflux, Hypertension, Osteoarthritis (OA), Sleep Apnea/CPAP/BIPAP, Thyroid Disorder Additional Past Medical History / Comment(s): migraines, diarrhea/constipation, kidney stones, no cpap used, History of Any Multi-Drug Resistant Organisms: None Reported Past Surgical History: Cholecystectomy, Orthopedic Surgery Additional Past Surgical History / Comment(s): faith knee arthroscopies, left knee ligament replacement, plantar faciitis (Not sure which foot), 4 surgeries for kidney stones/cystoscopy/lithotripsy/stent rt, rt shoulder surgery for impinged nerve Past Anesthesia/Blood Transfusion Reactions: Motion Sickness, Postoperative Nausea & Vomiting (PONV) Past Psychological History: Anxiety Smoking Status: Never smoker Past Alcohol Use History: None Reported Past Drug Use History: None Reported - Past Family History Mother Family Medical History: Cancer Additional Family Medical History / Comment(s): breast cancer Medications and Allergies Home Medications Medication Instructions Recorded Confirmed Type Cetirizine HCl [Zyrtec] 10 mg PO DAILY PRN 02/05/14 03/15/23 History buPROPion HCL [Wellbutrin XL] 300 mg PO HS 02/05/14 03/15/23 History Fenofibrate [Lofibra] 160 mg PO DAILY 07/10/19 03/15/23 History Levothyroxine Sodium [Synthroid] 100 mcg PO DAILY 07/10/19 03/15/23 History Pantoprazole Sodium 40 mg PO DAILY 07/10/19 03/15/23 History Propranolol HCl [Inderal] 60 mg PO BID 07/10/19 03/15/23 History Zonisamide [Zonegran] 200 mg PO HS 07/10/19 03/15/23 History Famotidine 40 mg PO HS 01/05/22 03/15/23 History QUEtiapine XR [SEROquel XR] 50 mg PO DAILY 01/05/22 03/15/23 History QUEtiapine [SEROquel] 100 mg PO HS 01/05/22 03/15/23 History Botox 1 dose IM Q90D 02/11/22 03/15/23 History Melatonin 5 - 10 mg PO HS PRN 02/11/22 03/15/23 History Metoclopramide [Reglan] 10 mg PO BID 02/11/22 03/15/23 History Ubrogepant [Ubrelvy] 100 mg PO DAILY PRN 02/11/22 03/15/23 History Vyepti 1 dose IVPB Q90D 02/11/22 03/15/23 History Cholecalciferol [Vitamin D3 (25 25 mcg PO DAILY 03/15/23 03/15/23 History Mcg = 1000 Iu)] Docusate [Colace] 100 mg PO DAILY PRN 03/15/23 03/15/23 History Linaclotide [Linzess] 145 mcg PO HS 03/15/23 03/15/23 History Losartan Potassium [Cozaar] 25 mg PO DAILY 03/15/23 03/15/23 History Magnesium 250 mg PO DAILY 03/15/23 03/15/23 History Pioglitazone [Actos] 15 mg PO HS 03/15/23 03/15/23 History Riboflavin (Vitamin B2) [Vitamin 50 mg PO DAILY 03/15/23 03/15/23 History B-2] Semaglutide [Ozempic] 2 mg SQ MARCUS 03/15/23 03/15/23 History Allergies Allergy/AdvReac Type Severity Reaction Status Date / Time meperidine HCl [From Demerol] Allergy Severe Vomiting Verified 03/15/23 16:03 amitriptyline [From Elavil] Allergy Unknown Verified 03/15/23 16:03 duloxetine [From Cymbalta] Allergy Unknown Verified 03/15/23 16:03 escitalopram [From Lexapro] Allergy Unknown Verified 03/15/23 16:03 metformin Allergy Vomiting Verified 03/15/23 16:03 propoxyphene Allergy Unknown Verified 03/15/23 16:03 [From Darvocet-N] topiramate [From Topamax] Allergy Unknown Verified 03/15/23 16:03 tramadol Allergy Unknown Verified 03/15/23 16:03 venlafaxine [From Effexor] Allergy Unknown Verified 03/15/23 16:03 escitalopram oxalate AdvReac Rash/Hives Verified 03/15/23 16:03 [From Lexapro] Surgical - Exam Vital Signs Temp Pulse Resp BP Pulse Ox 98.7 F 78 16 175/85 99 03/15/23 16:03 03/15/23 16:03 03/15/23 16:03 03/15/23 16:03 03/15/23 16:03 - General well developed, well nourished, moderate distress - Eyes normal ocular movement, no icteric - ENT no hearing loss, no congestion - Neck no masses, trachea midline - Respiratory normal respiratory effort, clear to auscultation - Abdomen Left flank pain Abdomen: soft, non tender, tender, no guarding, no rigid, no rebound - Integumentary no rash, no abnormal pigmentation - Neurologic no disoriented, no combative - Psychiatric oriented to time, oriented to person, oriented to place, speech is normal, memory intact Results - Labs 03/15/23 19:25 03/15/23 18:01 Abnormal Lab Results - Last 24 Hours (Table) 03/15/23 03/15/23 03/15/23 Range/Units 18:01 18:01 19:25 WBC 14.1 H (3.8-10.6) k/uL Neutrophils # 10.6 H (1.3-7.7) k/uL Sodium 136 L (137-145) mmol/L Carbon Dioxide 20 L (22-30) mmol/L BUN 20 H (7-17) mg/dL Creatinine 1.48 H (0.52-1.04) mg/dL Glucose 113 H (74-99) mg/dL Urine Appearance Cloudy H (Clear) Urine Protein 1+ H (Negative) Urine Blood Large H (Negative) Ur Leukocyte Esterase Moderate H (Negative) Urine RBC >182 H (0-5) /hpf Urine WBC 49 H (0-5) /hpf Ur Squamous Epith Cells 5 H (0-4) /hpf Urine Bacteria Rare H (None) /hpf Hyaline Casts 14 H (0-2) /lpf Urine Mucus Rare H (None) /hpf Urine Yeast (Budding) Many H (None) /hpf Diabetes panel 03/15/23 Range/Units 18:01 Sodium 136 L (137-145) mmol/L Potassium 4.6 (3.5-5.1) mmol/L Chloride 104 (98-107) mmol/L Carbon Dioxide 20 L (22-30) mmol/L BUN 20 H (7-17) mg/dL Creatinine 1.48 H (0.52-1.04) mg/dL Glucose 113 H (74-99) mg/dL Calcium 10.0 (8.4-10.2) mg/dL AST 26 (14-36) U/L ALT 16 (4-34) U/L Alkaline Phosphatase 59 (38-126) U/L Total Protein 7.5 (6.3-8.2) g/dL Albumin 4.4 (3.5-5.0) g/dL Calcium panel 03/15/23 Range/Units 18:01 Calcium 10.0 (8.4-10.2) mg/dL Albumin 4.4 (3.5-5.0) g/dL Pituitary panel 03/15/23 Range/Units 18:01 Sodium 136 L (137-145) mmol/L Potassium 4.6 (3.5-5.1) mmol/L Chloride 104 (98-107) mmol/L Carbon Dioxide 20 L (22-30) mmol/L BUN 20 H (7-17) mg/dL Creatinine 1.48 H (0.52-1.04) mg/dL Glucose 113 H (74-99) mg/dL Calcium 10.0 (8.4-10.2) mg/dL Adrenal panel 03/15/23 Range/Units 18:01 Sodium 136 L (137-145) mmol/L Potassium 4.6 (3.5-5.1) mmol/L Chloride 104 (98-107) mmol/L Carbon Dioxide 20 L (22-30) mmol/L BUN 20 H (7-17) mg/dL Creatinine 1.48 H (0.52-1.04) mg/dL Glucose 113 H (74-99) mg/dL Calcium 10.0 (8.4-10.2) mg/dL Total Bilirubin 0.4 (0.2-1.3) mg/dL AST 26 (14-36) U/L ALT 16 (4-34) U/L Alkaline Phosphatase 59 (38-126) U/L Total Protein 7.5 (6.3-8.2) g/dL Albumin 4.4 (3.5-5.0) g/dL - Imaging CT scan - abdomen: report reviewed, image reviewed CT scan - pelvis: report reviewed, image reviewed Assessment and Plan Assessment: Impression/ recommendations: This patient has a 13 mm proximal left ureteral stone with severe colic. We discussed treatment options including spontaneous passage shockwave lithotripsy stent stent with ureteroscopy. She chooses either a stent or stent with ureteroscopy and laser lithotripsy. I'll make a decision as to whether I can proceed with a stone removal based on the way the bladder looks endoscopically.
[2023-03-16] MEDS: SODIUM CHLORIDE 0.9% 1,000 ML IV SCH (08:25)
[2023-03-16] MEDS ORDERED: CHOLECALCIFEROL 25 MCG (1000 IU) TABLET PO SCH (09:00)
[2023-03-16] MEDS ORDERED: PROPRANOLOL 20 MG TAB PO SCH (09:00)
[2023-03-16] MEDS ORDERED: LOSARTAN 25 MG TAB PO SCH (09:00)
[2023-03-16] MEDS ORDERED: METOCLOPRAMIDE 10 MG TAB PO SCH (09:00)
[2023-03-16] MEDS ORDERED: PANTOPRAZOLE 40 MG TABLET PO SCH (09:00)
[2023-03-16] MEDS ORDERED: PANTOPRAZOLE 40 MG/10 ML VIAL IV SCH (09:00)
[2023-03-16] MEDS ORDERED: QUEtiapine 25 MG TAB PO SCH (09:00)
[2023-03-16] MEDS ORDERED: LACTATED RINGERS 1,000 ML IV ONE (14:00)
[2023-03-16 14:22] LABS: Glucose,Whole Blood 84 mg/dL (70-110)
[2023-03-16] MEDS ORDERED: fentaNYL (PF) 50 MCG/ML 2 ML AMP ONE (15:51)
[2023-03-16] MEDS ORDERED: LIDOCAINE 4% LTA KIT (4 ML) TOPICAL ONE (15:51)
[2023-03-16] MEDS ORDERED: SODIUM CHLORIDE 0.9% 100 ML BAG ONE (15:51)
[2023-03-16] MEDS ORDERED: MIDAZOLAM 2 MG/2 ML VIAL ONE (15:51)
[2023-03-16] MEDS ORDERED: ceFAZolin 1,000 MG VIAL ONE (15:51)
[2023-03-16] MEDS ORDERED: LIDOCAINE 2% INJ 20 MG/ML (2 ML VIAL) ONE (15:51)
[2023-03-16] MEDS ORDERED: ONDANSETRON 4 MG/2 ML VIAL ONE (15:51)
[2023-03-16] MEDS ORDERED: PROPOFOL 10 MG/ML 20 ML VIAL IV ONE (15:51)
[2023-03-16] MEDS ORDERED: SUCCINYLCHOLINE CHLORIDE 200 MG/10 ML VIAL IV ONE (15:51)
[2023-03-16] MEDS ORDERED: SODIUM CHLORIDE 0.9% 50 ML with ceFAZolin 2,000 MG IV ONE ×4 (16:04)
--- NOTE | 2023-03-16 16:54 | P.OP ---
Date of Procedure: 03/16/23 Preoperative Diagnosis: Left ureteral calculus with obstruction Postoperative Diagnosis: Same Procedure(s) Performed: Cystoscopy, left ureteroscopy with laser lithotripsy and stone basketing, placement of [id number] stent Anesthesia: ROBY Surgeon: Brett Gupta Estimated Blood Loss (ml): 0 Pathology: other Condition: stable (Stone) Disposition: PACU Indications for Procedure: Patient is 52. She has a history of stones. She presents with a 13 mm obstructing proximal ureteral stone on the left causing colic. She wishes something done. She comes for ureteroscopy and laser lithotripsy alternatives have been discussed. Description of Procedure: Patient brought to the operating suite. Given general anesthesia. Placed lithotomy position with sterile prep and drape. Cystoscopy Foroblique lens and 21-Faroese sheath identifies a normal urethra. The trigone was normal. The bladder mucosa is unremarkable. An 035 wires passed to the stone. The stone was impacted. I'm able to pass the wire past the stone. I then pass a semirigid scope up towards the stoma the stone focused back into the renal pelvis. I thus removed the semirigid scope and over the wires passed a [id number] reentry sheath. The inner sheath was removed. I passed the flexible ureteroscope up into the kidney. The stone was seen. It is dusted into tiny fragments. I then looked throughout the collecting system and finally another stone which is also broken. I basket the largest fragments. The stent will be placed at she's going on vacation and I do not wish her to have problems passing any fragments. Over the wires passed a 6 x 24 JJ catheter that coils in the renal pelvis and the bladder. The bladder is drained the patient is awakened and returned recovery room good condition. She tolerated the procedure well. He will be discharged home later today and found the office upon returning from vacation in 2 weeks for cystoscopy and stent removal.
[2023-03-16 16:55] VITALS: TEMP 96.8
--- NOTE | 2023-03-16 16:55 | P.DS ---
Providers Date of admission: 03/15/23 20:04 Attending physician: Brett Gupta Primary care physician: [facility] Course: The patient came in the hospital last night with an obstructing 13 mm stone and colic. The pain persisted throughout the night and thus she came today for ureteroscopy stone and removal. This was done successfully. A stent was placed. She'll be discharged home later today and found the office in 2 weeks for stent removal. Her condition is good. She'll be given a prescription of Cipro and Toradol. Postoperative instructions been given. Patient Condition at Discharge: Good Plan - Discharge Summary New Discharge Prescriptions: New Ciprofloxacin HCl [Cipro] 500 mg PO Q12HR 1 Days #10 tab Ketorolac [Toradol] 10 mg PO Q6HR PRN #14 tab PRN Reason: Pain No Action Cetirizine HCl [Zyrtec] 10 mg PO DAILY PRN PRN Reason: Allergy Symptoms buPROPion HCL [Wellbutrin XL] 300 mg PO HS Propranolol HCl [Inderal] 60 mg PO BID Pantoprazole Sodium 40 mg PO DAILY Levothyroxine Sodium [Synthroid] 100 mcg PO DAILY Fenofibrate [Lofibra] 160 mg PO DAILY Zonisamide [Zonegran] 200 mg PO HS Famotidine 40 mg PO HS Melatonin 5 - 10 mg PO HS PRN PRN Reason: Insomnia Metoclopramide [Reglan] 10 mg PO BID Ubrogepant [Ubrelvy] 100 mg PO DAILY PRN PRN Reason: Migraine Headache Docusate [Colace] 100 mg PO DAILY PRN PRN Reason: Constipation Riboflavin (Vitamin B2) [Vitamin B-2] 50 mg PO DAILY Losartan Potassium [Cozaar] 25 mg PO DAILY Linaclotide [Linzess] 145 mcg PO HS Cholecalciferol [Vitamin D3 (25 Mcg = 1000 Iu)] 25 mcg PO DAILY QUEtiapine [SEROquel] 100 mg PO HS QUEtiapine XR [SEROquel XR] 50 mg PO DAILY Vyepti 1 dose IVPB Q90D Botox 1 dose IM Q90D Pioglitazone [Actos] 15 mg PO HS Magnesium 250 mg PO DAILY Semaglutide [Ozempic] 2 mg SQ MARCUS Discharge Medication List Cetirizine HCl [Zyrtec] 10 mg PO DAILY PRN 02/05/14 [History] buPROPion HCL [Wellbutrin XL] 300 mg PO HS 02/05/14 [History] Fenofibrate [Lofibra] 160 mg PO DAILY 07/10/19 [History] Levothyroxine Sodium [Synthroid] 100 mcg PO DAILY 07/10/19 [History] Pantoprazole Sodium 40 mg PO DAILY 07/10/19 [History] Propranolol HCl [Inderal] 60 mg PO BID 07/10/19 [History] Zonisamide [Zonegran] 200 mg PO HS 07/10/19 [History] Famotidine 40 mg PO HS 01/05/22 [History] QUEtiapine XR [SEROquel XR] 50 mg PO DAILY 01/05/22 [History] QUEtiapine [SEROquel] 100 mg PO HS 01/05/22 [History] Botox 1 dose IM Q90D 02/11/22 [History] Melatonin 5 - 10 mg PO HS PRN 02/11/22 [History] Metoclopramide [Reglan] 10 mg PO BID 02/11/22 [History] Ubrogepant [Ubrelvy] 100 mg PO DAILY PRN 02/11/22 [History] Vyepti 1 dose IVPB Q90D 02/11/22 [History] Cholecalciferol [Vitamin D3 (25 Mcg = 1000 Iu)] 25 mcg PO DAILY 03/15/23 [History] Docusate [Colace] 100 mg PO DAILY PRN 03/15/23 [History] Linaclotide [Linzess] 145 mcg PO HS 03/15/23 [History] Losartan Potassium [Cozaar] 25 mg PO DAILY 03/15/23 [History] Magnesium 250 mg PO DAILY 03/15/23 [History] Pioglitazone [Actos] 15 mg PO HS 03/15/23 [History] Riboflavin (Vitamin B2) [Vitamin B-2] 50 mg PO DAILY 03/15/23 [History] Semaglutide [Ozempic] 2 mg SQ MARCUS 03/15/23 [History] Ciprofloxacin HCl [Cipro] 500 mg PO Q12HR 1 Days #10 tab 03/16/23 [Rx] Ketorolac [Toradol] 10 mg PO Q6HR PRN #14 tab 03/16/23 [Rx] Follow up Appointment(s)/Referral(s): Jaqueline Mota MD [Primary Care Provider] - 1-2 days Brett Gupta MD [STAFF PHYSICIAN] - 2 Weeks (Cystoscopy with stent removal) Discharge Disposition: HOME SELF-CARE
[2023-03-16 17:08] VITALS: BP 159/77; PULSE 81; RESP 17
[2023-03-16 17:20] LABS: Glucose,Whole Blood 73 mg/dL (70-110)
[2023-03-16] MEDS ORDERED: buPROPion XL 300 MG TAB.ER.24H PO SCH (21:00)
[2023-03-16] MEDS ORDERED: ZONISAMIDE 100 MG CAP PO SCH (21:00)
[2023-03-16] MEDS ORDERED: PIOGLITAZONE 15 MG TAB PO SCH (21:00)
[2023-03-16] MEDS ORDERED: QUEtiapine 100 MG TAB PO SCH (21:00)
--- NOTE | 2023-03-16 22:11 | FL ---
EXAMINATION TYPE: FL guidance operating room DATE OF EXAM: 03/16/2023 CLINICAL HISTORY: Obstructing left ureter calculus TECHNIQUE: Fluoroscopy. COMPARISON: None. FINDINGS: Fluoroscopic guidance was provided during cystoscopy procedure performed by Dr. Gupta. A total of 51 seconds of fluoroscopic time was utilized during the procedure and 2 spot images was acqu ired. Total dose area product (DAP) in uGy*m?, mGy*cm? (or similar: 0.97320. IMPRESSION: As Above.
[2023-03-21] MEDS ORDERED: NON FORMULARY DRUG (Semaglutide [Ozempic] 2 MG/0.75 ML Pen.Injctr) SQ SCH (09:00)
== END 2023-03-16 18:04 | disposition home or self-care (01) ==
LOC: EC 15:45 → 6NMEDSUR 20:04
PROVIDERS: ADMIT Urology; ATTEND Urology
DX: N13.2 Hydronephrosis with renal and ureteral calculous obstruction (principal); E11.9 Type 2 diabetes mellitus without complications; K21.9 Gastro-esophageal reflux disease without esophagitis; I10 Essential (primary) hypertension; M19.90 Unspecified osteoarthritis, unspecified site; G47.30 Sleep apnea, unspecified; E07.9 Disorder of thyroid, unspecified; G43.909 Migraine, unspecified, not intractable, without status migrainosus; Z90.49 Acquired absence of other specified parts of digestive tract; Z98.890 Other specified postprocedural states; F41.9 Anxiety disorder, unspecified; Z79.85 Long-term (current) use of injectable non-insulin antidiabetic drugs; Z79.84 Long term (current) use of oral hypoglycemic drugs; Z79.890 Hormone replacement therapy; Z79.899 Other long term (current) drug therapy; Z88.5 Allergy status to narcotic agent; Z88.8 Allergy status to other drugs, medicaments and biological substances; Z80.3 Family history of malignant neoplasm of breast
CPT/HCPCS: 96374; 99285; 36415; 81025; 80053; 82150; 83605; 83690; 85025; 81001; 82365; 87086; 74176; 52356; G0378 ×2; C1769; J2250; J0330; J2270; J2765; J2405 ×2; J0690; J3010; J1885; J2704; J2001; J1920

== ENCOUNTER → 2023-05-15 | Outpatient (CLI) | payer MEDICARE ==
[2023-05-15 23:30] LABS: Magnesium 1.7 mg/dL (1.5-2.4)
[2023-05-18 05:23] LABS: Methylmalonic Acid 0.62 umol/L (<0.40)
== END | disposition home or self-care (01) ==
LOC: LABWHC1 10:58
PROVIDERS: ATTEND Psychiatry & Neurology Neurology
DX: G43.811 Other migraine, intractable, with status migrainosus (principal); E55.9 Vitamin D deficiency, unspecified
CPT/HCPCS: 36415; 82306; 82607; 83735; 83921; 84207; 84425; 84630

== ENCOUNTER → 2023-06-01 | Outpatient (CLI) | payer MEDICARE | END | disposition home or self-care (01) | LOC: LABWHC1 10:52 | PROVIDERS: ATTEND Psychiatry & Neurology Neurology | DX: E53.0 Riboflavin deficiency (principal) | CPT/HCPCS: 36415 ==

== ENCOUNTER → 2023-08-16 | Outpatient (CLI) | payer MEDICARE ==
--- NOTE | 2023-08-17 07:47 | MR ---
EXAMINATION TYPE: MR knee RT wo con DATE OF EXAM: 08/16/2023 COMPARISON: 04/23/2021 HISTORY: Right knee pain S/P fall. TECHNIQUE: Multiplanar, multisequence imaging of the right knee is performed without IV contrast. FINDINGS: MEDIAL MENISCUS: Oblique tear posterior horn medial meniscus extending to the tibial surface. Anterio r horn is intact. LATERAL MENISCUS: Anterior and posterior horns are intact without tear. CRUCIATE LIGAMENTS: The anterior and posterior cruciate ligaments are intact and unremarkable. COLLATERAL LIGAMENTS: The medial collateral ligament and lateral collateral ligament complex are inta ct and unremarkable. EXTENSOR MECHANISM: Visualized quadriceps and patellar tendons are intact. EFFUSION: Small lateral suprapatellar effusion. POPLITEAL CYST: Annual compartment ganglion cyst measuring 3.8 x 1.2 cm. TRICOMPARTMENT SPACES: Mild narrowing of patellofemoral joint space and medial tibiofemoral joint spa ce. CARTILAGE: Intact BONE MARROW SIGNAL: No focal abnormal marrow signal is appreciated. OTHER: No additional significant abnormality is appreciated. IMPRESSION: 1. Oblique tear posterior horn medial meniscus. 2. Medial compartment ganglion cyst.
== END | disposition home or self-care (01) ==
LOC: RADMRIMAIN 12:49
PROVIDERS: ATTEND Orthopaedic Surgery
DX: M23.321 Other meniscus derangements, posterior horn of medial meniscus, right knee (principal); M67.461 Ganglion, right knee

== ENCOUNTER → 2023-09-07 | Outpatient (CLI) | payer MEDICARE ==
[~2023-09-07] MED LIST changes: -DEXAMETHASONE SOD PHOSPHATE 4 MG/ML 1 ML VIAL IV ONE; -LACTATED RINGERS 1,000 ML IV SCH; -LIDOCAINE 1% (10MG/ML) FOR IV START INTRADERMA PRN; -ONDANSETRON 4 MG/2 ML VIAL IVP ONE; +REGADENOSON 0.4 MG/5 ML SYRINGE IV PRN; -SCOPOLAMINE 1 MG/72 HR PATCH TRANSDERM ONE; -fentaNYL (PF) 50 MCG/ML 2 ML AMP IV PRN
--- NOTE | 2023-09-07 10:40 | CA ---
Lexiscan Nuclear Stress Test Report Name: Kelley Reddy Exam Date: 09/07/2023 09:39 Exam Location: [facility] Ht (in): 64 Wt (lb): 210 BSA: 2.00 Ordering Phys: Jaqueline Mota MD Referring Phys: Chaparro Blakely DO Technologist: CASSIDY Age: 53 Gender: F : 1970 Procedure CPT: Indications: R94.31 ABNORMAL ELECTROCARDIOGRAM ICD-10 Codes: Patient History: Abnormal EKG Medications: Meds past 24 hrs: Pretest Chest Pain: STRESS TEST Lexiscan Protocol Exercise Duration (min:sec): 01:[address] Depressions (mm): Angina Score: Peralta Score: Resting HR (bpm): 73 Peak HR (bpm): 101 Resting BP (mmHg): 149 / 82 Peak BP (mmHg): 155 / 86 MPHR: 167 Target HR: 142 % MPHR: 60 METS: 1.0 Total Dose: Peak Dose: Atropine: Double Product: 52938 BP Response: Stress Termination: Reached target heart rate Stress Symptoms: Flushing, , Nausea Stress Summary: ECG ANALYSIS Resting ECG: Sinus rhythm. Normal conduction. No arrhythmias. Normal repolarization. Stress ECG: No ECG changes from baseline with Lexiscan infusion. CONCLUSIONS No ECG evidence of ischemia with Lexiscan infusion. Nuclear test results to follow. Dr. Jennyfer Hamilton MD (Electronically Signed) Final Date: 07 September 2023 10:39
--- NOTE | 2023-09-08 09:10 | NM ---
EXAMINATION TYPE: NM stress lexiscan cardiolite DATE OF EXAM: 09/07/2023 COMPARISON: NONE CLINICAL INDICATION: Female, 53 years old with history of R94.31 ABNORMAL ELECTROCARDIOGRAM; TECHNIQUE: After the intravenous administration of 9.8 mCi Tc 99m Sestamibi - Cardiolite resting SPE CT images acquired 48 minutes post injection. The patient received 0.4mg Lexiscan, 25.3 mCi Tc 99m Sestamibi - Stress images obtained [address] injection FINDINGS: Review of stress and rest SPECT images demonstrates prominent GI activity along the inferior wall. Ar eas of decreased perfusion anterior and lateral wall particularly on rest suggests attenuation artifa cts. No distinct reversibility is seen. Gated analysis shows normal wall motion with an estimated lef t ventricular ejection fraction of 61 %. TID is calculated at 0.96, within normal limits. IMPRESSION: Very limited assessment given extensive GI activity along the inferior wall diminishing c ounts throughout other portions of the left ventricular wall. No convincing reversibility is seen. Fu rther evaluation if clinically indicated.
== END | disposition home or self-care (01) ==
LOC: RADNMMAIN 07:42
PROVIDERS: ATTEND Family Medicine
DX: R94.31 Abnormal electrocardiogram [ECG] [EKG] (principal); E11.9 Type 2 diabetes mellitus without complications; E78.2 Mixed hyperlipidemia; I10 Essential (primary) hypertension
CPT/HCPCS: 93017; 78452; A9500; J2785

== ENCOUNTER 2023-09-22 09:00 | Day surgery (SDC) | payer MEDICARE ==
[2023-09-17 16:33] VITALS: BMI 36.8
--- NOTE | 2023-09-21 19:28 | HP ---
HISTORY AND PHYSICAL DATE OF SURGERY: 09/22/2023. HISTORY OF PRESENT ILLNESS: Kelley Reddy is a 53-year-old patient, who was seen with progressive right knee pain. We discussed options regarding treatment. She elected to proceed with right knee arthroscopy. Consent was obtained. Medical clearance was provided. PAST MEDICAL HISTORY: Hypertension, hyperlipidemia, gastroesophageal reflux disease. PAST SURGICAL HISTORY: Noncontributory. DAILY MEDICATIONS: 1. Levothyroxine. 2. Losartan. 3. Ozempic. 4. Pantoprazole. 5. Propranolol. 6. Wellbutrin. ALLERGIES: None known. SOCIAL HISTORY: She denies tobacco use. PHYSICAL EVALUATION OF THE RIGHT KNEE: Range of motion is -3 to 115 degrees. Mild effusion. Tenderness, medial joint line. Positive medial Karly's. Ligaments stable. Hip rotation without pain. Distal neurovascular exam is intact. IMAGING STUDIES: Right knee radiographs revealed moderate osteoarthritis. Right knee MRI revealed a medial meniscal tear as well as a ganglion cyst in the medial compartment. IMPRESSION: 1. Internal derangement of right knee with medial meniscal tear. 2. Right knee medial compartment ganglion cyst. 3. Hypertension. 4. Gastroesophageal reflux disease. PLAN: Right knee arthroscopy with partial medial meniscectomy and debridement. MMODL / IJN: [id number] /
[~2023-09-22 09:00] MED LIST changes: +LACTATED RINGERS 1,000 ML IV SCH; -REGADENOSON 0.4 MG/5 ML SYRINGE IV PRN
[2023-09-22] MEDS: LACTATED RINGERS 1,000 ML IV ONE (09:37)
[2023-09-22 09:49] LABS: Glucose,Whole Blood 113 mg/dL (70-110)
[2023-09-22] MEDS: DEXAMETHASONE SOD PHOSPHATE 4 MG/ML 1 ML VIAL IV ONE (09:56)
[2023-09-22] MEDS: LIDOCAINE 1% (10MG/ML) FOR IV START INTRADERMA PRN (09:56)
[2023-09-22] MEDS: ONDANSETRON 4 MG/2 ML VIAL IVP ONE ×2 (09:56→12:28)
[2023-09-22] MEDS: MIDAZOLAM 2 MG/2 ML VIAL IVP ONE (10:03)
[2023-09-22] MEDS: SCOPOLAMINE 1 MG/72 HR PATCH TRANSDERM ONE (10:03)
[2023-09-22] MEDS: FAMOTIDINE 20 MG/2 ML VIAL IVP ONE (10:04)
[2023-09-22] MEDS ORDERED: SUCCINYLCHOLINE CHLORIDE 200 MG/10 ML VIAL IV ONE (10:23)
[2023-09-22] MEDS ORDERED: MIDAZOLAM 2 MG/2 ML VIAL ONE (10:23)
[2023-09-22] MEDS ORDERED: LIDOCAINE 1% INJ 10MG/ML (20 ML MDV) ONE (10:23)
[2023-09-22] MEDS ORDERED: PROPOFOL 10 MG/ML 20 ML VIAL IV ONE (10:23)
[2023-09-22] MEDS ORDERED: fentaNYL (PF) 50 MCG/ML 2 ML AMP ONE (10:23)
[2023-09-22] MEDS: BUPIVACAINE (PF) 0.25% 30 ML VIAL SQ ONE (10:59)
--- NOTE | 2023-09-22 11:24 | P.OP ---
Date of Procedure: 09/22/23 Preoperative Diagnosis: Internal derangement right knee Postoperative Diagnosis: 1. Tear medial and lateral meniscus right knee 2. 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 Reactive synovitis medial, lateral and suprapatellar compartments right knee 4. Grade II chondromalacia medial femoral condyle right knee 5. 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 Arthroscopic partial medial and lateral meniscectomy right knee 2. Arthroscopic microfracture lateral femoral condyle right knee 3. Arthroscopic partial synovectomy medial, lateral and suprapatellar compartments right knee 4. Arthroscopic chondroplasty medial femoral condyle right knee 5. Arthroscopic chondroplasty lateral femoral condyle right knee Anesthesia: JLUISA, local Surgeon: Chaparro Blakely Estimated Blood Loss (ml): 8 Pathology: none sent Condition: stable Disposition: PACU Indications for Procedure: 53-year-old patient seen with progressive right knee pain. After having treatment options discussed, she elected to proceed with arthroscopy. Operative Findings: See description of procedure Description of Procedure: Patient was taken to the operative suite. Patient underwent a general anesthetic by the department of anesthesia. Patient was given preoperative antibiotics. The right lower extremity was placed in a well-padded arthroscopic leg humphries. The right leg was prepped and draped in the normal sterile orthopedic fashion. A lateral parapatellar and suprapatellar incision was made. Trochars were inserted. Arthroscopy was initiated. Suprapatellar pouch revealed diffuse thick reactive synovitis. The patellofemoral joint appeared to articular congruently. There was grade IV chondromalacia of the patella and femoral sulcus with large areas of exposed bone on both sides. The scope was guided into the medial gutter. No loose bodies or plica were identified. The scope was then guided into the medial compartment. A medial parapatellar incision was made. Trocar inserted followed by probe. There was a radial tear involving the posterior horn of the medial meniscus. There was an area of grade II chondromalacia medial femoral condyle with an osteochondral flap tear present. There was thick reactive synovitis anteriorly. I performed a partial medial meniscectomy getting down to stable meniscal tissue. I performed a chondroplasty of the medial femoral condyle getting down to stable osteochondral tissue. I performed a partial synovectomy decompressing the thick reactive synovitis. The residual meniscus was stable. The residual osteochondral vika face was stable. There was good decompression of the synovitis. Scope and probe were then guided into the intercondylar notch. Cruciates were identified, probed and found to be stable. The scope and probe were then guided into lateral compartment. There was a complex tear involving the anterior horn and posterior horn and mid body of the lateral meniscus. There were grade III/IV chondromalacia changes of the tibial plateau. There were grade III/IV chondromalacia changes of the lateral femoral condyle with areas of osteochondral flap tears. I performed a partial lateral meniscectomy getting down to stable meniscal tissue. I performed a chondroplasty of the lateral femoral condyle getting down to stable osteochondral tissue. I did note an area of grade IV chondromalacia involving the lateral femoral condyle which measured 1.5 cm. I performed a partial synovectomy decompressing a thick reactive synovitis anteriorly. I introduced a microfracture awl and perform microfracture to the area of exposed bone lateral femoral condyle penetrating the bone with resultant bleeding at the microfracture site. The residual meniscus was probed and was found to be stable. The residual osteochondral surface was stable. There was good decompression of the synovitis. The scope was in guided back into the suprapatellar compartment. I introduced a motorized shaver into the suprapatellar compartment. I debrided some piecemeal fragments of meniscus that I encountered. I performed a partial synovectomy. The shaver was now removed. There was good decompression of the synovitis. I now took one more look around the entire knee, no residual debris. Instruments were now removed from the joint. The joint was infiltrated with .25% Marcaine. Steri- Strips were applied to the portal sites. Sterile dressings were applied. The patient was placed into a ERICK hose. No tourniquet was utilized. The patient was awakened, transferred to a bed and taken to recovery stable satisfactory condition.
[2023-09-22] MEDS: HYDROmorphone 0.5 MG/0.5 ML SYRINGE IVP PRN (11:34)
[2023-09-22 11:37] VITALS: TEMP 98.1
[2023-09-22 11:40] LABS: Glucose,Whole Blood 152 mg/dL (70-110)
[2023-09-22] MEDS ORDERED: ONDANSETRON 4 MG/2 ML VIAL ONE (12:25)
[2023-09-22] MEDS: HYDROmorphone 0.5 MG/0.5 ML SYRINGE IVP ONE (12:29)
[2023-09-22 12:48] VITALS: BP 138/84; PULSE 78; RESP 14
== END 2023-09-22 13:37 | disposition home or self-care (01) ==
LOC: OR 09:00
PROVIDERS: ATTEND Orthopaedic Surgery
DX: S83.241A Other tear of medial meniscus, current injury, right knee, initial encounter (principal); S83.281A Other tear of lateral meniscus, current injury, right knee, initial encounter; M94.261 Chondromalacia, right knee; I10 Essential (primary) hypertension; E78.5 Hyperlipidemia, unspecified; E11.9 Type 2 diabetes mellitus without complications; K21.9 Gastro-esophageal reflux disease without esophagitis; M67.461 Ganglion, right knee; E03.9 Hypothyroidism, unspecified; G43.909 Migraine, unspecified, not intractable, without status migrainosus; X58.XXXA Exposure to other specified factors, initial encounter; Z79.899 Other long term (current) drug therapy; Z79.84 Long term (current) use of oral hypoglycemic drugs; Z79.890 Hormone replacement therapy; Z90.89 Acquired absence of other organs; Z98.890 Other specified postprocedural states
CPT/HCPCS: 29880; 29879; 29876; 81025; J2250; J0330; J1100; J0690; J2405; J2001; J3010; J3490; J2704; J1170; J0665

== ENCOUNTER → 2023-10-30 | Outpatient (CLI) | payer MEDICARE ==
[2023-10-30 14:09] LABS: Magnesium 1.7 mg/dL (1.5-2.4)
== END | disposition home or self-care (01) ==
LOC: LABWHC1 08:23
PROVIDERS: ATTEND Psychiatry & Neurology Neurology
DX: G43.811 Other migraine, intractable, with status migrainosus (principal)
CPT/HCPCS: 36415; 82306; 82607; 83735